=== PATIENT | female | born 1995 | race Two or more races ===

== ENCOUNTER 2016-09-24 02:29 | Emergency (ER) | payer MEDICAID ==
[~2016-09-24] VITALS: Ht 144.8 cm; Wt 68.0 kg
[2016-09-24 02:46] VITALS: BP 151/96
--- NOTE | 2016-09-24 02:58 | Emergency Room Report ---
History of Present Illness General Chief Complaint: Abdominal Pain Source: Patient Present Illness HPI Is a 20-year-old female with no past medical history. She presents with chief complaint of lower abdominal pain for the last day. Decreased appetite. Did not eat much today. No fever chills denies nausea no vomiting or diarrhea. No urinary complaint. Pain is 7/10. Mostly right lower quadrant. No radiation Allergies: Coded Allergies: No Known Allergies (Unverified , 09/24/16) Patient History Past Medical History: see triage record, old chart reviewed Past Surgical History: none Pertinent Family History: none Social History: Denies: smoking Last Menstrual Period: last week Now: No : 0 Para: 0 Immunizations: other Reviewed Nursing Documentation: PMH: Agreed, PSxH: Agreed Nursing Documentation-PMH Past Medical History: No Stated History Review of Systems Eye: Denies: blurred vision, eye pain ENT: Denies: ear pain, nose congestion, throat swelling Respiratory: Denies: cough, shortness of breath Cardiovascular: Denies: chest pain, palpitations Gastrointestinal: Reports: abdominal pain, Denies: diarrhea, nausea, vomiting Musculoskeletal: Denies: back pain, joint pain Skin: Denies: rash Neurological: Denies: headache, numbness Endocrine: Denies: increased thirst, increased urine Hematologic/Lymphatic: Denies: easy bruising All Other Systems: negative except mentioned in HPI Physical Exam Vital Signs Date Time Temp Pulse Resp B/P Pulse Ox O2 Delivery O2 Flow Rate FiO2 09/24/16 02:34 97.3 132 16 151/96 99 Room Air minus with tachycardia Sp02 EP Interpretation: reviewed, normal General Appearance: well appearing, no apparent distress, alert Head: normocephalic, atraumatic Eyes: bilateral eye EOMI, bilateral eye PERRL ENT: hearing grossly normal, normal pharynx Neck: full range of motion, supple, no meningismus Respiratory: chest non-tender, lungs clear, normal breath sounds Cardiovascular #1: regular rate, rhythm, no murmur Gastrointestinal: normal bowel sounds, no mass, no organomegaly, no bruit, non- distended, tenderness - Right lower quadrant Musculoskeletal: back normal, gait/station normal, normal range of motion Neurologic: alert, oriented x3 Psychiatric: mood/affect normal Skin: warm/dry Medical Decision Making Diagnostic Impression: Primary Impression: Abdominal pain Qualified Codes: R10.84 - Generalized abdominal pain ER Course Patient presents with vague abdominal pain. No evidence of acute abdomen. Pain resolved now. No evidence of appendicitis. No evidence of urinary tract infection. We'll discharge home. Lab Results Impression labs normal CT/MRI/US Diagnostic Results CT/MRI/US Diagnostic Results : Imaging Test Ordered: CT abdomen and pelvis Impression negative per radiologist Last Vital Signs Date Time Temp Pulse Resp B/P Pulse Ox O2 Delivery O2 Flow Rate FiO2 09/24/16 02:46 97.3 81 16 151/96 99 Room Air Status: improved Disposition: HOME, SELF-CARE Condition: Stable Scripts Ibuprofen* (MOTRIN*) 600 Mg Tablet 600 MG ORAL THREE TIMES A DAY, #30 TAB 0 Refills Prov: DELFINO VALLE M.D. 09/24/16 Referrals: [facility],REFERRING (PCP) Patient Instructions: Abdominal Pain, Adult Additional Instructions: followup with your DrJoan in 7 days. Return if worse. DELFINO VALLE M.D. Sep 24, 2016 02:58
[2016-09-24] MEDS ORDERED: Ketorolac 30mg Inj IV ONE (03:00)
[2016-09-24 03:25] LABS: APPEARANCE,URINE CLEAR; BASOPHILS % (AUTO) 1.3 % (0.0-2.0); EOSINOPHILS % (AUTO) 0.8 % (0.0-3.0); KETONES,URINE NEGATIVE (NEGATIVE); LEUKOCYTE ESTERASE ,URINE NEGATIVE (NEGATIVE); LYMPHOCYTES % (AUTO) 29.1 % (20.0-45.0); MEAN CORPUSCULAR HGB CONC 32.4 G/DL (32.0-36.0); MEAN CORPUSCULAR VOLUME 86 FL (80-99); MEAN PLATELET VOLUME 7.3 FL (6.5-10.1); MONOCYTES % (AUTO) 4.4 % (1.0-10.0); NEUTROPHILS % (AUTO) 64.5 % (45.0-75.0); NITRITE,URINE NEGATIVE (NEGATIVE); PH,URINE 7 (4.5-8.0); PLATELET COUNT 307 K/UL (150-450); PROTEIN,URINE NEGATIVE (NEGATIVE); RED BLOOD COUNT 4.74 M/UL (4.20-5.40); RED CELL DISTRIBUTION WIDTH 12.9 % (11.6-14.8); UROBILINOGEN,URINE NORMAL MG/DL (0.0-1.0); WHITE BLOOD COUNT 12.4 K/UL (4.8-10.8)
[2016-09-24 03:42] LABS: ALANINE AMINOTRANSFERASE 19 U/L (3-33); ALBUMIN/GLOBULIN RATIO 1.2 (1.0-2.7); ANION GAP 15 (5-15); ASPARTATE AMINO TRANSFERASE 34 U/L (5-40); CARBON DIOXIDE 25 mEQ/L (20-30); CHLORIDE 99 mEQ/L (98-107); CREATININE 0.9 mg/dL (0.5-0.9); GLOMERULAR FILTRATION RATE > 60 mL/min (>60); HEMOLYSIS 8; LIPASE 26 U/L (< 60); POTASSIUM 3.6 mEQ/L (3.4-4.9); SODIUM 139 mEQ/L (135-145); TOTAL PROTEIN 7.3 g/dL (6.6-8.7)
[2016-09-24] MEDS ORDERED: IBUPROFEN600 MG ORAL (04:29)
[2016-09-24 04:37] VITALS: BP_SYST 134; BP_SYST 151; BP_DIAS 90; BP_DIAS 96
--- NOTE | 2016-09-24 08:44 | Diagnostic Imaging Report ---
Indications: Abdominal pain Technique: Continuous helical CT imaging of the abdomen and pelvis was performed with automatic exposure control following administration of nonionic IV contrast only, on a Siemens sensation [address] scanner. Axial, coronal, sagittal images were reconstructed at 5 mm slice thickness. No oral contrast was administered per requesting physician's order, despite no contraindications listed in either submitted clinical data or tech note.. CTDI volume(s): 16 mGy Total DLP: 781 mGy-cm Findings: Comparison: None Lack of oral contrast limits evaluation of gastrointestinal tract, nondilated throughout. Small hiatal hernia. Several loops of fluid-filled, nondilated small bowel. Appendix contains small nodular calcifications in the basal aspect of lumen, otherwise unremarkable. No obvious mural thickening, adjacent stranding, extraluminal gas or fluid collections identified. Bilateral unopacified renal collecting systems and ureters mildly distended to the ureterovesical junctions. Urinary bladder distended. No obvious associated stone, mass,, mural thickening, or surrounding stranding. Liver, gallbladder, pancreas, spleen, adrenal glands, renal parenchyma, uterus, bilateral adnexal regions, vascular structures, retroperitoneum, mesentery, remainder visualized abdominopelvic anatomy unremarkable. Irregular pleural-based linear densities and dependent portions of both lung bases, right greater than left.. No focal skeletal abnormalities are identified. IMPRESSION: Distended urinary bladder, nonspecific. Outflow obstruction not excludable. Correlate clinically. Mild distention of bilateral renal collecting systems and ureters without other obvious obstructive etiology, may be secondary to above. Fluid-filled nondilated small bowel, nonspecific, may represent mild ileus/enteritis. Correlate clinically.. Appendicoliths with short appendix versus previous appendectomy with surgical clips. No evidence of acute appendicitis. Small hiatal hernia Pulmonary bibasal subsegmental atelectasis No other evidence of acute abdominopelvic disease, with limitation as described. Subtle but potentially significant abnormalities the gastrointestinal tract may be missed. Repeat CT scan with full oral and IV contrast preparation recommended for more complete evaluation, as clinically indicated This correlates with [facility] preliminary report.
== END 2016-09-24 04:37 | disposition home or self-care (01) ==
LOC: EMR 02:49
DX: R10.30 Lower abdominal pain, unspecified (principal); K44.9 Diaphragmatic hernia without obstruction or gangrene; N32.89 Other specified disorders of bladder
CPT/HCPCS: 36415; 74177; 80053; 81003; 81025; 83690; 85025; 85610; 85730; 96360; 96374; 99284; J1885; Q9967

== ENCOUNTER 2016-12-21 00:17 | Inpatient (IN) | payer MEDICAID ==
[2016-12-21] VITALS (21 sets, daily range): BP systolic 95–131; BP diastolic 40–76
[~2016-12-21] VITALS: Ht 160 cm; Wt 65.8 kg
[~2016-12-21 00:17] MED LIST: IBUPROFEN600 MG ORAL
[2016-12-21] MEDS ORDERED: Morphine Sulfate 4mg/ml Inj IVP ONE ×2 (00:45→04:45)
[2016-12-21 01:16] LABS: APPEARANCE,URINE CLEAR; KETONES,URINE 3+ (NEGATIVE); LEUKOCYTE ESTERASE ,URINE 1+ (NEGATIVE); NITRITE,URINE NEGATIVE (NEGATIVE); PH,URINE 6.5 (4.5-8.0); PROTEIN,URINE 3+ (NEGATIVE); UROBILINOGEN,URINE 1 MG/DL (0.0-1.0)
[2016-12-21 01:20] LABS: MEAN CORPUSCULAR HEMOGLOBIN 29.2 PG (27.0-31.0); MEAN CORPUSCULAR HGB CONC 33.8 G/DL (32.0-36.0); MEAN CORPUSCULAR VOLUME 86 FL (80-99); MEAN PLATELET VOLUME 8.2 FL (6.5-10.1); PLATELET COUNT 338 K/UL (150-450); RED BLOOD COUNT 5.13 M/UL (4.20-5.40); RED CELL DISTRIBUTION WIDTH 11.9 % (11.6-14.8)
[2016-12-21 01:24] LABS: WHITE BLOOD COUNT 23.4 K/UL (4.8-10.8)
[2016-12-21 01:32] LABS: ALANINE AMINOTRANSFERASE 14 U/L (3-33); ALBUMIN/GLOBULIN RATIO 1.5 (1.0-2.7); ANION GAP 16 (5-15); ASPARTATE AMINO TRANSFERASE 23 U/L (5-40); CALCIUM 9.7 mg/dL (8.6-10.2); CARBON DIOXIDE 26 mEQ/L (20-30); CHLORIDE 102 mEQ/L (98-107); CREATININE 0.8 mg/dL (0.5-0.9); GLOMERULAR FILTRATION RATE > 60 mL/min (>60); HEMOLYSIS 0; LIPASE 38 U/L (< 60); SODIUM 144 mEQ/L (135-145)
[2016-12-21 01:33] LABS: BACTERIA,URINE FEW /HPF; MUCUS,URINE MODERATE /LPF (NONE/OCC); SQUAMOUS EPITHELIAL CELL,UR FEW /LPF (NONE/OCC)
--- NOTE | 2016-12-21 01:50 | Emergency Room Report ---
History of Present Illness General Chief Complaint: Abdominal Pain Source: Patient Present Illness HPI 21-year-old female presents ED complaining of abdominal pain with nausea and vomiting. States symptoms started last night. Pain is sharp, localized to right lower quadrant, 8/10, nonradiating. Notes nausea and vomiting. Denies fevers or chills. Denies dysuria or hematuria. Relieving factors. Denies any other associated symptoms Allergies: Coded Allergies: No Known Allergies (Unverified , 09/24/16) Patient History Past Medical History: none Past Surgical History: none Pertinent Family History: none Social History: Denies: alcohol use, drug use, smoking Now: No - 12/11/16 Immunizations: UTD Reviewed Nursing Documentation: PMH: Agreed, PSxH: Agreed Nursing Documentation-PMH Past Medical History: No Stated History Hx Cardiac Problems: No Hx Hypertension: No Hx Pacemaker: No Hx Asthma: No Hx COPD: No Hx Diabetes: No Hx Cancer: No Hx Dialysis: No Hx Neurological Problems: No Hx Cerebrovascular Accident: No Hx Seizures: No Review of Systems All Other Systems: negative except mentioned in HPI Physical Exam Vital Signs Date Time Temp Pulse Resp B/P Pulse Ox O2 Delivery O2 Flow Rate FiO2 12/21/16 00:23 98.2 86 16 12/80 98 Room Air Sp02 EP Interpretation: reviewed, normal General Appearance: alert, GCS 15, non-toxic, mild distress Head: normocephalic Eyes: bilateral eye PERRL, bilateral eye normal inspection ENT: normal ENT inspection Neck: normal inspection Respiratory: chest non-tender, lungs clear, normal breath sounds, speaking full sentences Cardiovascular #1: regular rate, rhythm, no edema Gastrointestinal: normal bowel sounds, soft, non-distended, no rebound, guarding, tenderness - RLQ Rectal: deferred Genitourinary: no CVA tenderness Musculoskeletal: normal inspection Neurologic: alert, oriented x3, responsive, motor strength/tone normal, sensory intact, speech normal Psychiatric: normal inspection Skin: normal inspection Lymphatic: normal inspection Medical Decision Making Diagnostic Impression: Primary Impression: Acute appendicitis Qualified Codes: K35.80 - Unspecified acute appendicitis ER Course Hospital Course 21-year-old F presents to ED with RLQ pain with vomiting Differential diagnoses include: Appendicitis, cholecystitis, small bowel obstruction Clinical course Patient placed on stretcher. hospital monitor. After initial history and physical I ordered labs, IV fluids, UA, pain medication and CT scan Labs - leukocytosis noted, Hb/Hct stable. electrolytes ok. UA unremarkable CT abdomen and pelvis - appendicits Antibiotics given. Case discussed with Dr. Fragoso who will consult on the case Case discussed with Dr. Arellano and he agreed to accept the patient to his service for further care and support I feel this is a highly complex case requiring extensive working including EKG/ Rhythm strip, Xray/CT/US, Blood/urine lab work, repeat exams while in ED, and administration of strong opiates/narcotics for pain control, admission to hospital or close patient follow up. Diagnosis - acute appendicitis admitted in serious condition Labs Test 12/21/16 00:47 12/21/16 00:53 White Blood Count 23.4 K/UL (4.8-10.8) Red Blood Count 5.13 M/UL (4.20-5.40) Hemoglobin 15.0 G/DL (12.0-16.0) Hematocrit 44.3 % (37.0-47.0) Mean Corpuscular Volume 86 FL (80-99) Mean Corpuscular Hemoglobin 29.2 PG (27.0-31.0) Mean Corpuscular Hemoglobin Concent 33.8 G/DL (32.0-36.0) Red Cell Distribution Width 11.9 % (11.6-14.8) Platelet Count 338 K/UL (150-450) Mean Platelet Volume 8.2 FL (6.5-10.1) Neutrophils (%) (Auto) % (45.0-75.0) Lymphocytes (%) (Auto) % (20.0-45.0) Monocytes (%) (Auto) % (1.0-10.0) Eosinophils (%) (Auto) % (0.0-3.0) Basophils (%) (Auto) % (0.0-2.0) Sodium Level 144 mEQ/L (135-145) Potassium Level 4.0 mEQ/L (3.4-4.9) Chloride Level 102 mEQ/L (98-107) Carbon Dioxide Level 26 mEQ/L (20-30) Anion Gap 16 (5-15) Blood Urea Nitrogen 7 mg/dL (7-23) Creatinine 0.8 mg/dL (0.5-0.9) Estimat Glomerular Filtration Rate > 60 mL/min (>60) Glucose Level 119 mg/dL (74-106) Calcium Level 9.7 mg/dL (8.6-10.2) Total Bilirubin 0.3 mg/dL (0.0-1.2) Aspartate Amino Transf (AST/SGOT) 23 U/L (5-40) Alanine Aminotransferase (ALT/SGPT) 14 U/L (3-33) Alkaline Phosphatase 67 U/L (35-104) Total Protein 8.0 g/dL (6.6-8.7) Albumin 4.9 g/dL (3.5-5.2) Globulin 3.1 g/dL Albumin/Globulin Ratio 1.5 (1.0-2.7) Lipase 38 U/L (< 60) Urine Color Yellow Urine Appearance Clear Urine pH 6.5 (4.5-8.0) Urine Specific [place] 1.015 (1.005-1.035) Urine Protein 3+ (NEGATIVE) Urine Glucose (UA) Negative (NEGATIVE) Urine Ketones 3+ (NEGATIVE) Urine Occult Blood 3+ (NEGATIVE) Urine Nitrite Negative (NEGATIVE) Urine Bilirubin Negative (NEGATIVE) Urine Urobilinogen 1 MG/DL (0.0-1.0) Urine Leukocyte Esterase 1+ (NEGATIVE) Urine RBC 5-10 /HPF (0 - 2) Urine WBC 2-4 /HPF (0 - 2) Urine Squamous Epithelial Cells Few /LPF (NONE/OCC) Urine Bacteria Few /HPF (NONE) Urine Mucus Moderate /LPF (NONE/OCC) Urine HCG, Qualitative Negative CT/MRI/US Diagnostic Results CT/MRI/US Diagnostic Results : Imaging Test Ordered: CT A/P Impression acute appendicitis Last Vital Signs Date Time Temp Pulse Resp B/P Pulse Ox O2 Delivery O2 Flow Rate FiO2 12/21/16 00:23 98.2 86 16 12/80 98 Room Air Status: improved Disposition: ADMITTED INPATIENT Condition: Serious DAHLIA SHIN M.D. Dec 21, 2016 01:50
[2016-12-21] MEDS ORDERED: Piperacillin/Tazobactam 3.375 GM in NS 110 ML IVPB ONE (02:45)
[2016-12-21] MEDS ORDERED: Zosyn 3.375gm inj ONE (02:45)
--- NOTE | 2016-12-21 06:17 | General Progress Note ---
Progress Note Progress Note Consult dictated #[id number]. Impression : Acute appendicitis. Plan: will arrange for a laparoscopic appendectomy, possible open appendectomy by Dr Espino or Dr Zamora. Jesus Fragoso MD Dec 21, 2016 06:17
[2016-12-21 06:43] LABS: PROTHROMBIN TIME 10.2 SEC (9.30-11.50)
[2016-12-21] MEDS ORDERED: Mylanta II UD 30ml ORAL PRN (07:00)
[2016-12-21] MEDS ORDERED: Nitroglycerin Subl 0.4mg tab (Bottle Of 25) SL PRN (07:00)
[2016-12-21 07:19] LABS: BAND NEUTROPHILS % (MANUAL) 2 % (0-8); BASOPHILS % (MANUAL) 0 % (0-2); EOSINOPHILS % (MANUAL) 0 % (0-3); HYPOCHROMASIA 1+; LYMPHOCYTES % (MANUAL) 10 % (20-45); NEUTROPHILS % (MANUAL) 86 % (45-75); PLATELET ESTIMATE ADEQUATE; PLATELET MORPHOLOGY NORMAL; TOTAL CELLS COUNTED 100
[2016-12-21] MEDS: Morphine Sulfate 2mg/ml Inj IVP PRN ×3 (07:23→20:36)
[2016-12-21] MEDS: Pantoprazole Inj IVP SCH (08:16)
--- NOTE | 2016-12-21 08:51 | Pre-Procedure Note/Attestation ---
Pre-Procedure Note/Attestation Complete Prior to Procedure Planned Procedure: not applicable Procedure Narrative: laparoscopic appendectomy Indications for Procedure Pre-Operative Diagnosis: Acute appendicitis Attestation I attest that I discussed the nature of the procedure; its benefits; risks and complications; and alternatives (and the risks and benefits of such alternatives ), prior to the procedure, with the patient (or the patient's legal call center support representative). I attest that, if there was a reasonable possibility of needing a blood transfusion, the patient (or the patient's legal call center support representative) was given the [facility] standardized written summary, pursuant to the [place] Blood Safety Act ([place] Health and Safety Code # 1645, as amended). I attest that I re-evaluated the patient just prior to the surgery and that there has been no change in the patient's H&P, except as documented below: Robert Espino Dec 21, 2016 08:51
--- NOTE | 2016-12-21 08:58 | Diagnostic Imaging Report ---
Indication: Abdominal pain Technique: Continuous helical transaxial imaging of the abdomen and pelvis was obtained from the lung bases to the pubic symphysis during intravenous contrast administration. Coronal 2-D reformats were also obtained. Study obtained in a Siemens sensation [address] Total Dose length Product (DLP): [address] Dose Index Volume (CTDIvol): 16 mGy Comparison: None Findings: The appendix is dilated. There is thickening of the wall particularly at the proximal part of the appendix. Findings consistent with acute appendicitis. There is no evidence of rupture or fluid identified. The lung bases appear clear. There is a hiatal hernia. The gallbladder and solid organs are normal. There is no hydronephrosis. Uterus is noted. Impression: Acute appendicitis [facility] has communicated the preliminary results to the Emergency Department. Their findings are largely concordant with this report. The CT scanner at [facility] is accredited by the [employer] and the scans are performed using dose optimization techniques as appropriate to a performed exam including Automatic Exposure control.
[2016-12-21] MEDS ORDERED: Heparin 5000 units/ml inj SUBQ SCH (09:00)
--- NOTE | 2016-12-21 09:08 | Consultation ---
History of Present Illness General Date patient seen: Dec 21, 2016 Chief Complaint: Abdominal Pain Reason for Consultation: Acute appendicitis Present Illness HPI 21 year old otherwise healthy female presented to ED complaining of abdominal pain x 1 day. As per patient she was in her normal state of health until yesterday when she began to note worsening right lower quadrant abdominal pain. pain described as 8/10 sharp pain without radiation. associated with nausea and non blood emesis. as pain worsened she came to ED for evaluation. In ED found to have leukocytosis, exam with RLQ tenderness, and CT consistent with acute appendicitis. Surgery called to evaluate. Allergies: Coded Allergies: No Known Allergies (Unverified , 09/24/16) Medication History Scheduled Ibuprofen* (Motrin*), 600 MG ORAL THREE TIMES A DAY Patient History History Provided By: Patient Healthcare decision maker Resuscitation status Full Code Advanced Directive on File Past Medical/Surgical History Past Medical/Surgical History: (1) Acute appendicitis (2) Appendicitis Review of Systems Constitutional: Denies: chills, fever, malaise, no symptoms, other, see HPI, sweats, weakness Eye: Denies: acuity changes, blurred vision, discharge, double vision, eye pain , no symptoms, nose congestion, nose pain, other, see HPI, tearing ENT: Denies: ear discharge, ear pain, hearing loss, mouth pain, nasal discharge , no symptoms, nose congestion, nose pain, other, see HPI, throat pain, throat swelling Respiratory: Denies: SANDOVAL, cough, no symptoms, orthopnea, other, see HPI, shortness of breath, sputum, stridor, wheezing Cardiovascular: Denies: PND, chest pain, edema, no symptoms, other, palpitations, see HPI, syncope Gastrointestinal: Reports: abdominal pain, nausea, vomiting Genitourinary: Denies: discharge, dysuria, frequency, hematuria, incontinence, no symptoms, other, pain, retention, see HPI, urgency, vag bleed/dc Musculoskeletal: Denies: back pain, gout, joint pain, joint swelling, muscle pain, muscle stiffness, no symptoms, other, see HPI Skin: Denies: change in color, change in hair/nails, dryness, lesions, no symptoms, other, rash, see HPI Psychiatric: Denies: HI, SI, anxiety, depressed feelings, emotional problems, hallucinations, no symptoms, other, prior hx, see HPI Neurological: Denies: dizziness, focal weakness, headache, no symptoms, numbness, other, paresthesia, see HPI, seizure, syncope, tingling, tremors Endocrine: Denies: excessive sweating, flushing, increased thirst, increased urine, intolerance to temperature, no symptoms, other, see HPI, unexplained weight loss Hematologic/Lymphatic: Denies: anemia, blood clots, diathesis, easy bleeding, easy bruising, no symptoms, other, see HPI, swollen glands Physical Exam General Appearance: no apparent distress, alert Lines, tubes and drains: peripheral HEENT: atraumatic, PERRL Neck: normal inspection Respiratory/Chest: normal breath sounds, no respiratory distress, no accessory muscle use Cardiovascular/Chest: normal rate, regular rhythm Abdomen: soft, no organomegaly, no mass, guarding, rebound, tender Extremities: normal inspection Skin Exam: warm/dry Neurologic: alert, oriented x 3 Last 24 Hour Vital Signs Date Time Temp Pulse Resp B/P Pulse Ox O2 Delivery O2 Flow Rate FiO2 12/21/16 07:56 97.7 69 18 105/58 100 Room Air 12/21/16 07:53 97.7 12/21/16 05:40 98.1 71 19 107/57 98 Room Air 12/21/16 05:08 98.2 79 16 97/51 98 Room Air 12/21/16 05:07 98.2 79 16 97/51 98 Room Air 12/21/16 03:15 98.2 79 16 119/59 98 Room Air 12/21/16 00:23 98.2 86 16 12/80 98 Room Air Intake and Output 12/20/16 12/21/16 19:00 07:00 Intake Total 300 ml Balance 300 ml Intake Oral 0 ml IV Total 300 ml Laboratory Tests Test 12/21/16 00:47 12/21/16 00:53 12/21/16 06:25 White Blood Count 23.4 K/UL (4.8-10.8) *H Red Blood Count 5.13 M/UL (4.20-5.40) Hemoglobin 15.0 G/DL (12.0-16.0) Hematocrit 44.3 % (37.0-47.0) Mean Corpuscular Volume 86 FL (80-99) Mean Corpuscular Hemoglobin 29.2 PG (27.0-31.0) Mean Corpuscular Hemoglobin Concent 33.8 G/DL (32.0-36.0) Red Cell Distribution Width 11.9 % (11.6-14.8) Platelet Count 338 K/UL (150-450) Mean Platelet Volume 8.2 FL (6.5-10.1) Neutrophils (%) (Auto) % (45.0-75.0) Lymphocytes (%) (Auto) % (20.0-45.0) Monocytes (%) (Auto) % (1.0-10.0) Eosinophils (%) (Auto) % (0.0-3.0) Basophils (%) (Auto) % (0.0-2.0) Differential Total Cells Counted 100 Neutrophils % (Manual) 86 % (45-75) H Lymphocytes % (Manual) 10 % (20-45) L Monocytes % (Manual) 2 % (1-10) Eosinophils % (Manual) 0 % (0-3) Basophils % (Manual) 0 % (0-2) Band Neutrophils 2 % (0-8) Platelet Estimate Adequate Platelet Morphology Normal Hypochromasia 1+ Sodium Level 144 mEQ/L (135-145) Potassium Level 4.0 mEQ/L (3.4-4.9) Chloride Level 102 mEQ/L (98-107) Carbon Dioxide Level 26 mEQ/L (20-30) Anion Gap 16 (5-15) H Blood Urea Nitrogen 7 mg/dL (7-23) Creatinine 0.8 mg/dL (0.5-0.9) Estimat Glomerular Filtration Rate > 60 mL/min (>60) Glucose Level 119 mg/dL (74-106) H Calcium Level 9.7 mg/dL (8.6-10.2) Total Bilirubin 0.3 mg/dL (0.0-1.2) Aspartate Amino Transf (AST/SGOT) 23 U/L (5-40) Alanine Aminotransferase (ALT/SGPT) 14 U/L (3-33) Alkaline Phosphatase 67 U/L (35-104) Total Protein 8.0 g/dL (6.6-8.7) Albumin 4.9 g/dL (3.5-5.2) Globulin 3.1 g/dL Albumin/Globulin Ratio 1.5 (1.0-2.7) Lipase 38 U/L (< 60) Human Chorionic Gonadotropin, Quant 3 mIU/mL Urine Color Yellow Urine Appearance Clear Urine pH 6.5 (4.5-8.0) Urine Specific [place] 1.015 (1.005-1.035) Urine Protein 3+ (NEGATIVE) H Urine Glucose (UA) Negative (NEGATIVE) Urine Ketones 3+ (NEGATIVE) H Urine Occult Blood 3+ (NEGATIVE) H Urine Nitrite Negative (NEGATIVE) Urine Bilirubin Negative (NEGATIVE) Urine Urobilinogen 1 MG/DL (0.0-1.0) H Urine Leukocyte Esterase 1+ (NEGATIVE) H Urine RBC 5-10 /HPF (0 - 2) H Urine WBC 2-4 /HPF (0 - 2) Urine Squamous Epithelial Cells Few /LPF (NONE/OCC) Urine Bacteria Few /HPF (NONE) Urine Mucus Moderate /LPF (NONE/OCC) H Urine HCG, Qualitative Negative Urine Opiates Screen Negative (NEGATIVE) Urine Barbiturates Screen Negative (NEGATIVE) Phencyclidine (PCP) Screen Negative (NEGATIVE) Urine Amphetamines Screen Negative (NEGATIVE) Urine Benzodiazepines Screen Negative (NEGATIVE) Urine Cocaine Screen Negative (NEGATIVE) Urine Marijuana (THC) Screen Negative (NEGATIVE) Prothrombin Time 10.2 SEC (9.30-11.50) Prothromb Time International Ratio 1.0 (0.9-1.1) Activated Partial Thromboplast Time 28 SEC (23-33) Height (Feet): 5 Height (Inches): 3.00 Weight (Pounds): 145 Medications Current Medications Medications (Trade) Dose Ordered Sig/Miri Route PRN Reason Start Time Stop Time Status Last Admin Dose Admin Acetaminophen (Tylenol) 650 mg Q4H PRN ORAL T>100.5 12/21/16 07:00 01/20/17 06:59 Al Hydroxide/Mg Hydroxide (Mylanta II) 30 ml Q6H PRN ORAL dyspepsia 12/21/16 07:00 01/20/17 06:59 Dextrose STAT PRN IV Hypoglycemia 12/21/16 07:00 01/20/17 06:59 Diphenhydramine HCl (Benadryl) 25 mg Q6H PRN ORAL Itching/Pruritis 12/21/16 07:00 01/20/17 06:59 Heparin Sodium (Porcine) (Heparin 5000 units/ml) 5,000 units EVERY 12 HOURS SUBQ 12/21/16 09:00 01/20/17 08:59 Morphine Sulfate (Morphine Sulfate) 2 mg Q4H PRN IVP Severe Pain (Pain Scale 7-10) 12/21/16 07:00 12/28/16 06:59 12/21/16 07:23 Nitroglycerin (Ntg) 0.4 mg Q5M X 3 DOSES PRN SL Prn Chest Pain 12/21/16 07:00 01/20/17 06:59 Ondansetron HCl (Zofran) 4 mg Q6H PRN IVP Nausea & Vomiting 12/21/16 07:00 01/20/17 06:59 Pantoprazole (Protonix) 40 mg DAILY IVP 12/21/16 09:00 01/20/17 08:59 12/21/16 08:16 Piperacillin Sod/ Tazobactam Sod/ Sodium Chloride (Zosyn/Sodium Chloride) 110 ml @ 27.5 mls/hr EVERY 8 HOURS IVPB 12/21/16 14:00 12/28/16 13:59 Polyethylene Glycol (Miralax) 17 gm HSPRN PRN ORAL Constipation 12/21/16 21:00 01/20/17 20:59 Sodium Chloride (Sodium Chloride 1000ml bag) 1,000 ml @ 150 mls/hr Q6H40M IV 12/21/16 06:15 01/20/17 06:14 12/21/16 06:33 Temazepam (Restoril) 15 mg HSPRN PRN ORAL Insomnia 12/21/16 21:00 12/28/16 20:59 Assessment/Plan Problem List: (1) Acute appendicitis Assessment & Plan: 21F acute appendicitis. Afebrile, HD stable, leukocytosis, exam with RLQ tenderness, rebound and guarding, CT consistent with acute appendicitis. To OR for lap appy today NPO IV fluids IV Abx Consent in chart. ICD Codes: K35.80 - Unspecified acute appendicitis SNOMED: [id number] Qualifiers: Qualified Codes: K35.80 - Unspecified acute appendicitis Status: stable Robert Espino Dec 21, 2016 09:08
[2016-12-21] MEDS ORDERED: Bupivacaine w/Epi 0.5% 30ml Vial INJ ONE (09:39)
--- NOTE | 2016-12-21 09:45 | Consultation ---
DATE OF CONSULTATION: 12/21/2016 SURGICAL CONSULTATION REASON FOR ADMISSION: Abdominal pain and appendicitis. HISTORY OF PRESENT ILLNESS: This is a 21-year-old, 0, para 0, female. LMP is 12/11/2016. Developed problems with lower abdominal pain accompanied by nausea and vomiting at 10 p.m. on the evening prior to admission. The patient had a formed stool at that time. She denies any problems with diarrhea or rectal bleeding. PAST MEDICAL HISTORY: None. PREVIOUS SURGERIES: None. ALLERGIES: None known. MEDICATIONS: Oral contraceptives for regulation of periods. SOCIAL HISTORY: Tobacco, none. Alcohol, rare consumption. Occupation, retail sales. FAMILY HISTORY: Positive for hypertension in the patient's father. REVIEW OF SYSTEMS: Essentially negative. She denies any history of asthma or hepatitis. She is a 0, para 0 female, who was been on oral contraceptives for 6 months for regulation of menstrual periods. PHYSICAL EXAMINATION: GENERAL: Reveals a well-developed and well-nourished female. VITAL SIGNS: Temperature 98.2 degrees, blood pressure 97/51, pulse 80, and respirations 16. HEENT: Normocephalic. Pupils are equal and reactive to light. There was no scleral icterus. NECK: Supple without adenopathy. LUNGS: Clear. HEART: Showed a regular rhythm without murmurs or gallops. ABDOMEN: Flat. Bowel sounds were present, but decreased. There is tenderness with guarding in the right lower quadrant. There were no palpable masses. EXTREMITIES: Showed no clubbing, cyanosis, or edema. Peripheral pulses are intact. LABORATORY AND DIAGNOSTIC STUDIES: CBC showed a white blood count of 23,400, hemoglobin 15 grams percent, hematocrit 44.3%, and platelet count 338,000. Clinical chemistry showed a sodium of 144, potassium 4.0, chloride 102, bicarbonate 26, BUN 7, creatinine 0.8, and glucose 119. Lipase is normal at 38. Urinalysis showed 3+ protein, negative glucose, 3+ ketones, 3+ occult blood, and 1+ leukocyte esterase. Microscopic shows 5 to 10 red blood cells, 2 to 4 white cells, and few bacteria. Urine HCG was negative. A CT scan of the abdomen and pelvis showed no free air. There was with evidence of intestinal obstruction. There was thickening of the appendix with some surrounding stranding. IMPRESSION: Acute appendicitis. PLAN: The patient will need to be taken to the operating room this morning for a laparoscopic appendectomy versus open appendectomy. The nature, risks, and benefits of the surgery were explained. Jesus Fragoso M.D. DR: PIERCE JOB#: [id number] CC:
[2016-12-21] MEDS ORDERED: LR 1000ml 1,000 ML IVLG SCH (10:38)
--- NOTE | 2016-12-21 10:44 | Anethesia Preoperative Eval ---
Anesthesia Pre-op PMH/ROS General Date of Evaluation: Dec 21, 2016 Time of Evaluation: 11:16 Anesthesiologist: Lalitha ASA Score: ASA 1 Mallampati Score Class I : Soft palate, uvula, fauces, pillars visible Class II: Soft palate, uvula, fauces visible Class III: Soft palate, base of uvula visible Class IV: Only hard plate visible Mallampati Classification: Class I Surgeon: Kenzie Diagnosis: Acute Appendicitis Surgical Procedure: Laparoscopic Appendectomy Anesthesia History: none Family History: no anesthesia problems Allergies: Coded Allergies: No Known Allergies (Unverified , 09/24/16) Medications: see eMAR Past Medical History Neurologic/Psychiatric: Reports: depression/anxiety Anesthesia Pre-op Phys. Exam Physician Exam Last Vital Signs Date Time Temp Pulse Resp B/P Pulse Ox O2 Delivery O2 Flow Rate FiO2 12/21/16 07:56 97.7 69 18 105/58 100 Room Air Constitutional: NAD Neurologic: CN 2-12 intact Cardiovascular: RRR Respiratory: CTA Gastrointestinal: S/NT/ND Airway Exam Mallampati Score: Class I MO: full ROM: full Teeth: intact Anesthesia Pre-op A/P Labs Hematology Test 12/21/16 00:47 White Blood Count 23.4 K/UL (4.8-10.8) *H Red Blood Count 5.13 M/UL (4.20-5.40) Hemoglobin 15.0 G/DL (12.0-16.0) Hematocrit 44.3 % (37.0-47.0) Mean Corpuscular Volume 86 FL (80-99) Mean Corpuscular Hemoglobin 29.2 PG (27.0-31.0) Mean Corpuscular Hemoglobin Concent 33.8 G/DL (32.0-36.0) Red Cell Distribution Width 11.9 % (11.6-14.8) Platelet Count 338 K/UL (150-450) Mean Platelet Volume 8.2 FL (6.5-10.1) Neutrophils (%) (Auto) % (45.0-75.0) Lymphocytes (%) (Auto) % (20.0-45.0) Monocytes (%) (Auto) % (1.0-10.0) Eosinophils (%) (Auto) % (0.0-3.0) Basophils (%) (Auto) % (0.0-2.0) Differential Total Cells Counted 100 Neutrophils % (Manual) 86 % (45-75) H Lymphocytes % (Manual) 10 % (20-45) L Monocytes % (Manual) 2 % (1-10) Eosinophils % (Manual) 0 % (0-3) Basophils % (Manual) 0 % (0-2) Band Neutrophils 2 % (0-8) Platelet Estimate Adequate Platelet Morphology Normal Hypochromasia 1+ Coagulation Test 12/21/16 06:25 Prothrombin Time 10.2 SEC (9.30-11.50) Prothromb Time International Ratio 1.0 (0.9-1.1) Activated Partial Thromboplast Time 28 SEC (23-33) Chemistry Test 12/21/16 00:47 Sodium Level 144 mEQ/L (135-145) Potassium Level 4.0 mEQ/L (3.4-4.9) Chloride Level 102 mEQ/L (98-107) Carbon Dioxide Level 26 mEQ/L (20-30) Anion Gap 16 (5-15) H Blood Urea Nitrogen 7 mg/dL (7-23) Creatinine 0.8 mg/dL (0.5-0.9) Estimat Glomerular Filtration Rate > 60 mL/min (>60) Glucose Level 119 mg/dL (74-106) H Calcium Level 9.7 mg/dL (8.6-10.2) Total Bilirubin 0.3 mg/dL (0.0-1.2) Aspartate Amino Transf (AST/SGOT) 23 U/L (5-40) Alanine Aminotransferase (ALT/SGPT) 14 U/L (3-33) Alkaline Phosphatase 67 U/L (35-104) Total Protein 8.0 g/dL (6.6-8.7) Albumin 4.9 g/dL (3.5-5.2) Globulin 3.1 g/dL Albumin/Globulin Ratio 1.5 (1.0-2.7) Lipase 38 U/L (< 60) Human Chorionic Gonadotropin, Quant 3 mIU/mL Urine Test Test 12/21/16 00:53 Urine HCG, Qualitative Negative Risk Assessment & Plan Assessment: ASA 1 Plan: GA, BIS, Glidescope Status Change Before Surgery: No Pre-Antibiotics Dru.375 Grams Zosyn IV Given Within 1 Hr of Incision: Yes Time Given: 11:31 Raza Doty MD Dec 21, 2016 10:43
[2016-12-21] MEDS ORDERED: DiphenhydrAMINE 50mg/ml Inj IVP PRN (10:45)
[2016-12-21] MEDS ORDERED: Ketorolac 30mg Inj IV PRN (10:45)
[2016-12-21] MEDS ORDERED: Oxycodone/Acetaminophen 5-325 ORAL PRN (10:45)
[2016-12-21] MEDS ORDERED: LORazepam Inj 2mg/ml 1ml IV PRN (10:45)
[2016-12-21] MEDS ORDERED: Midazolam 2mg/2ml Inj IVP PRN (10:45)
[2016-12-21] MEDS ORDERED: Ketorolac 60mg Inj IV PRN (10:45)
[2016-12-21] MEDS ORDERED: fentaNYL 100 mcg/2 mL IV PRN (10:45)
[2016-12-21] MEDS ORDERED: Hydromorphone 0.5mg/0.5ml inj IVP PRN (10:45)
[2016-12-21] MEDS ORDERED: Meperidine 25mg/0.5ml Inj (FOR RIGORS ONLY) IV PRN (10:45)
[2016-12-21] MEDS ORDERED: Metoclopramide 10mg/2ml Inj IVP PRN (10:45)
[2016-12-21] MEDS ORDERED: Norco 7.5mg/325mg tab ORAL PRN (10:45)
[2016-12-21] MEDS ORDERED: Norco 5mg/325mg tab ORAL PRN (10:45)
[2016-12-21] MEDS ORDERED: Atropine Inj 1mg/10ml Syr IV PRN (10:45)
[2016-12-21] MEDS ORDERED: Zemuron 50mg/5ml Inj IV ONE (11:00)
[2016-12-21] MEDS ORDERED: Propofol 10mg/ml 20ml IV ONE (11:00)
[2016-12-21] MEDS ORDERED: LR 1000ml ONE (11:00)
[2016-12-21] MEDS ORDERED: fentaNYL 100 mcg/2 mL IV ONE (11:00)
[2016-12-21] MEDS ORDERED: NS Irrig 1000ml ONE (11:00)
[2016-12-21] MEDS ORDERED: Dexamethasone 4mg/ml vial ONE (11:00)
[2016-12-21] MEDS ORDERED: Neostigmine 1mg/ml 10ml Inj ONE (11:00)
[2016-12-21] MEDS ORDERED: Midazolam 2mg/2ml Inj ONE (11:00)
[2016-12-21] MEDS ORDERED: Sterile Water Irrig 1000ml IRRIG ONE (11:00)
[2016-12-21] MEDS ORDERED: Glycopyrrolate 0.2mg/ml 1ml Vial ONE (11:00)
[2016-12-21] MEDS ORDERED: Acetaminophen (Non formulary) 100 ML IV ONE (11:30)
--- NOTE | 2016-12-21 11:52 | Consultation ---
Consult Note Consult Note ID DIC# [id number] NEHEMIAH LINARES M.D. Dec 21, 2016 11:52
--- NOTE | 2016-12-21 11:52 | Immediate Post-Op Evaluation ---
Immediate Post-Op Evalulation Immediate Post-Op Evalulation Procedure: Laparoscopic Appendectomy Date of Evaluation: Dec 21, 2016 Time of Evaluation: 12:44 IV Fluids: 500 LR Blood Products: 0 Estimated Blood Loss: 10 Urinary Output: 0 Blood Pressure Systolic: 101 Blood Pressure Diastolic: 40 Pulse Rate: 76 Respiratory Rate: 16 O2 Sat by Pulse Oximetry: 96 Temperature (Fahrenheit): 97.7 Pain Score (1-10): 2 Nausea: No Vomiting: No Complications 0 Patient Status: awake, reacts, patent, extubated, none Hydration Status: adequate Dru.375 Grams Zosyn IV Given Within 1 Hr of Incision: Yes Time Given: 11:31 Raza Doty MD Dec 21, 2016 11:52
--- NOTE | 2016-12-21 12:27 | Brief Operative Note ---
Immediate Post Operative Note Operative Note Pre-op Diagnosis: Acute appendicitis Procedure: lap appy Findings: consistent w/pre-op dx studies Surgeon: april Anesthesiologist: Rm Anesthesia: general Specimen: yes Complications: none Condition: stable Fluids: see records Estimated Blood Loss: minimal Drains: none Implant(s) used?: No Robert Espino Dec 21, 2016 12:27
--- NOTE | 2016-12-21 13:34 | History and Physical ---
History of Present Illness General Date patient seen: Dec 21, 2016 Reason for Hospitalization: Abdominal Pain Present Illness HPI 21-year-old female presented to ED complaining of abdominal pain with nausea and vomiting. States symptoms started last night. Pain is sharp, localized to right lower quadrant, 8/10, nonradiating. Notes nausea and vomiting. Denies fevers or chills. Denies dysuria or hematuria. Relieving factors. Denies any other associated symptoms. Her CT of abdomen showed acute appendicitis. She is admitted for appendectomy. Allergies: Coded Allergies: No Known Allergies (Unverified , 09/24/16) Medication History Scheduled Ibuprofen* (Motrin*), 600 MG ORAL THREE TIMES A DAY Patient History Healthcare decision maker Resuscitation status Full Code Advanced Directive on File Review of Systems Constitutional: Reports: no symptoms Eye: Reports: no symptoms ENT: Reports: no symptoms Physical Exam General Appearance: WD/WN, no apparent distress Lines, tubes and drains: peripheral, central line Neck: non-tender, normal alignment Respiratory/Chest: chest wall non-tender, lungs clear, normal breath sounds Breasts: no masses Cardiovascular/Chest: normal peripheral pulses, normal rate Abdomen: normal bowel sounds, non tender Genitourinary/Rectal: normal genital exam, normal rectal exam Extremities: normal range of motion Last 24 Hour Vital Signs Date Time Temp Pulse Resp B/P Pulse Ox O2 Delivery O2 Flow Rate FiO2 12/21/16 13:20 66 19 121/69 98 Nasal Cannula 3.0 12/21/16 13:10 64 14 112/65 98 Nasal Cannula 3.0 12/21/16 13:00 67 22 115/72 97 Nasal Cannula 3.0 12/21/16 12:50 64 20 95/63 98 Nasal Cannula 3.0 12/21/16 12:45 78 21 120/61 98 Simple Mask 6.0 12/21/16 12:40 69 18 112/56 96 Simple Mask 6.0 12/21/16 12:33 97.7 76 22 101/40 94 Simple Mask 6.0 12/21/16 12:33 76 16 96 12/21/16 07:56 97.7 69 18 105/58 100 Room Air 12/21/16 07:53 97.7 12/21/16 05:40 98.1 71 19 107/57 98 Room Air 12/21/16 05:08 98.2 79 16 97/51 98 Room Air 12/21/16 05:07 98.2 79 16 97/51 98 Room Air 12/21/16 03:15 98.2 79 16 119/59 98 Room Air 12/21/16 00:23 98.2 86 16 12/80 98 Room Air Intake and Output 12/20/16 12/21/16 19:00 07:00 Intake Total 300 ml Balance 300 ml Intake Oral 0 ml IV Total 300 ml Laboratory Tests Test 12/21/16 00:47 12/21/16 00:53 12/21/16 06:25 White Blood Count 23.4 K/UL (4.8-10.8) *H Red Blood Count 5.13 M/UL (4.20-5.40) Hemoglobin 15.0 G/DL (12.0-16.0) Hematocrit 44.3 % (37.0-47.0) Mean Corpuscular Volume 86 FL (80-99) Mean Corpuscular Hemoglobin 29.2 PG (27.0-31.0) Mean Corpuscular Hemoglobin Concent 33.8 G/DL (32.0-36.0) Red Cell Distribution Width 11.9 % (11.6-14.8) Platelet Count 338 K/UL (150-450) Mean Platelet Volume 8.2 FL (6.5-10.1) Neutrophils (%) (Auto) % (45.0-75.0) Lymphocytes (%) (Auto) % (20.0-45.0) Monocytes (%) (Auto) % (1.0-10.0) Eosinophils (%) (Auto) % (0.0-3.0) Basophils (%) (Auto) % (0.0-2.0) Differential Total Cells Counted 100 Neutrophils % (Manual) 86 % (45-75) H Lymphocytes % (Manual) 10 % (20-45) L Monocytes % (Manual) 2 % (1-10) Eosinophils % (Manual) 0 % (0-3) Basophils % (Manual) 0 % (0-2) Band Neutrophils 2 % (0-8) Platelet Estimate Adequate Platelet Morphology Normal Hypochromasia 1+ Sodium Level 144 mEQ/L (135-145) Potassium Level 4.0 mEQ/L (3.4-4.9) Chloride Level 102 mEQ/L (98-107) Carbon Dioxide Level 26 mEQ/L (20-30) Anion Gap 16 (5-15) H Blood Urea Nitrogen 7 mg/dL (7-23) Creatinine 0.8 mg/dL (0.5-0.9) Estimat Glomerular Filtration Rate > 60 mL/min (>60) Glucose Level 119 mg/dL (74-106) H Calcium Level 9.7 mg/dL (8.6-10.2) Total Bilirubin 0.3 mg/dL (0.0-1.2) Aspartate Amino Transf (AST/SGOT) 23 U/L (5-40) Alanine Aminotransferase (ALT/SGPT) 14 U/L (3-33) Alkaline Phosphatase 67 U/L (35-104) Total Protein 8.0 g/dL (6.6-8.7) Albumin 4.9 g/dL (3.5-5.2) Globulin 3.1 g/dL Albumin/Globulin Ratio 1.5 (1.0-2.7) Lipase 38 U/L (< 60) Human Chorionic Gonadotropin, Quant 3 mIU/mL Urine Color Yellow Urine Appearance Clear Urine pH 6.5 (4.5-8.0) Urine Specific [place] 1.015 (1.005-1.035) Urine Protein 3+ (NEGATIVE) H Urine Glucose (UA) Negative (NEGATIVE) Urine Ketones 3+ (NEGATIVE) H Urine Occult Blood 3+ (NEGATIVE) H Urine Nitrite Negative (NEGATIVE) Urine Bilirubin Negative (NEGATIVE) Urine Urobilinogen 1 MG/DL (0.0-1.0) H Urine Leukocyte Esterase 1+ (NEGATIVE) H Urine RBC 5-10 /HPF (0 - 2) H Urine WBC 2-4 /HPF (0 - 2) Urine Squamous Epithelial Cells Few /LPF (NONE/OCC) Urine Bacteria Few /HPF (NONE) Urine Mucus Moderate /LPF (NONE/OCC) H Urine HCG, Qualitative Negative Urine Opiates Screen Negative (NEGATIVE) Urine Barbiturates Screen Negative (NEGATIVE) Phencyclidine (PCP) Screen Negative (NEGATIVE) Urine Amphetamines Screen Negative (NEGATIVE) Urine Benzodiazepines Screen Negative (NEGATIVE) Urine Cocaine Screen Negative (NEGATIVE) Urine Marijuana (THC) Screen Negative (NEGATIVE) Prothrombin Time 10.2 SEC (9.30-11.50) Prothromb Time International Ratio 1.0 (0.9-1.1) Activated Partial Thromboplast Time 28 SEC (23-33) Height (Feet): 5 Height (Inches): 3.00 Weight (Pounds): 145 Medications Current Medications Medications (Trade) Dose Ordered Sig/Miri Route PRN Reason Start Time Stop Time Status Last Admin Dose Admin Acetaminophen (Tylenol) 650 mg Q4H PRN ORAL T>100.5 12/21/16 07:00 01/20/17 06:59 Acetaminophen/ Hydrocodone Bitart ([place] 5/325) 1 tab Q1H PRN ORAL Mild Pain (Pain Scale 1-3) 12/21/16 10:45 12/21/16 17:00 Acetaminophen/ Hydrocodone Bitart ([place] 7.5/325) 1 ea Q1H PRN ORAL Moderate Pain (Pain Scale 4-6) 12/21/16 10:45 12/21/16 17:00 Al Hydroxide/Mg Hydroxide (Mylanta II) 30 ml Q6H PRN ORAL dyspepsia 12/21/16 07:00 01/20/17 06:59 Al Hydroxide/Mg Hydroxide (Mylanta) 15 ml Q1H PRN ORAL gi upset 12/21/16 10:45 12/21/16 17:00 Atropine Sulfate 0.5 mg 0.5 mg Q5M PRN IV HR <40 12/21/16 10:45 12/21/16 17:00 Dextrose STAT PRN IV Hypoglycemia 12/21/16 07:00 01/20/17 06:59 Diphenhydramine HCl (Benadryl) 25 mg Q15M PRN IVP Itching 12/21/16 10:45 12/21/16 17:00 Diphenhydramine HCl (Benadryl) 25 mg Q6H PRN ORAL Itching/Pruritis 12/21/16 07:00 01/20/17 06:59 Fentanyl Citrate (Sublimaze 100 mcg/2 mL) 25 mcg Q10M PRN IV Moderate Pain (Pain Scale 4-6) 12/21/16 10:45 12/21/16 17:00 Hydralazine HCl (Apresoline) 5 mg Q30M PRN IV SBP>160 / DBP>90 12/21/16 10:45 12/21/16 17:00 Hydromorphone HCl (Dilaudid) 0.5 mg Q15M PRN IVP Severe Pain (Pain Scale 7-10) 12/21/16 10:45 12/21/16 17:00 Ketorolac Tromethamine (Toradol 30mg) 15 mg Q1H PRN IV Moderate Breakthru Pain (5-7) 12/21/16 10:45 12/21/16 17:00 Ketorolac Tromethamine (Toradol) 60 mg Q1H PRN IV Severe Breakthru Pain (>7) 12/21/16 10:45 12/21/16 17:00 Lactated Ringer's (Lactated Ringer's 1000ml) 1,000 ml @ 10 mls/hr Q24H IVLG 12/21/16 10:38 12/21/16 17:00 Lorazepam (Ativan 2mg/ml 1ml) 1 mg Q15M PRN IV For Anxiety 12/21/16 10:45 12/21/16 17:00 Meperidine HCl (Demerol) 25 mg Q5M PRN IV Shivering. May repeat x 1 12/21/16 10:45 12/21/16 17:00 Midazolam HCl (Versed 2mg/2ml vial) 1 mg Q15M PRN IVP For Anxiety 12/21/16 10:45 12/21/16 17:00 12/21/16 12:56 Morphine Sulfate (Morphine Sulfate) 2 mg Q4H PRN IVP Severe Pain (Pain Scale 7-10) 12/21/16 07:00 12/28/16 06:59 12/21/16 07:23 Nitroglycerin (Ntg) 0.4 mg Q5M X 3 DOSES PRN SL Prn Chest Pain 12/21/16 07:00 01/20/17 06:59 Ondansetron HCl (Zofran) 4 mg Q6H PRN IVP Nausea & Vomiting 12/21/16 07:00 01/20/17 06:59 Oxycodone/ Acetaminophen (Percocet 5-325) 1 tab Q1H PRN ORAL Severe Pain (Pain Scale 7-10) 12/21/16 10:45 12/21/16 17:00 Pantoprazole (Protonix) 40 mg DAILY IVP 12/21/16 09:00 01/20/17 08:59 12/21/16 08:16 Piperacillin Sod/ Tazobactam Sod/ Sodium Chloride (Zosyn/Sodium Chloride) 110 ml @ 27.5 mls/hr EVERY 8 HOURS IVPB 12/21/16 14:00 12/28/16 13:59 Polyethylene Glycol (Miralax) 17 gm HSPRN PRN ORAL Constipation 12/21/16 21:00 01/20/17 20:59 Sodium Chloride (Sodium Chloride 1000ml bag) 1,000 ml @ 150 mls/hr Q6H40M IV 12/21/16 06:15 01/20/17 06:14 12/21/16 06:33 Temazepam (Restoril) 15 mg HSPRN PRN ORAL Insomnia 12/21/16 21:00 12/28/16 20:59 Assessment/Plan Problem List: (1) Appendicitis ICD Codes: K37 - Unspecified appendicitis SNOMED: 15960597 (2) Sepsis ICD Codes: A41.9 - Sepsis, unspecified organism SNOMED: 84707428 Assessment/Plan NPO surgical evaluation IV antibiotics f/u wbc IV fluids MARTINA PALMA Dec 21, 2016 13:34
[2016-12-21] MEDS ORDERED: Piperacillin/Tazobactam 3.375 GM in NS 110 ML IVPB SCH (14:00)
--- NOTE | 2016-12-21 16:26 | GI Initial Consult Note ---
History of Present Illness General Date patient seen: Dec 21, 2016 Time patient seen: 10:00 Reason for Hospitalization: Abdominal Pain Referring physician: MARTINA QUIÑONES Reason for Consultation: Acute appendicitis Present Illness HPI 21-year-old female presents ED complaining of abdominal pain with nausea and vomiting. States symptoms started last night. Pain is sharp, localized to right lower quadrant, 8/10, nonradiating. Notes nausea and vomiting. Denies fevers or chills. Denies dysuria or hematuria. Relieving factors. Denies any other associated symptoms GI Consult. HPI as noted above. GI consulted for abdominal pain. Pt seen on floor, awake A&Ox4 NAD c/o of RLQ pain now scheduled for lap appy today. The patient presents with leukocytosis only. CMP/LFT panels are unremarkable. No history of endoscopic procedures. Home Meds Active Scripts Ibuprofen* (MOTRIN*) 600 Mg Tablet, 600 MG ORAL THREE TIMES A DAY, #30 TAB 0 Refills Prov:DELFINO VALLE M.D. 09/24/16 Med list reviewed/reconciled: Yes Allergies: Coded Allergies: No Known Allergies (Unverified , 09/24/16) Patient History History Provided By: Patient, Medical Record PMH Narrative Past Medical History: none Past Surgical History: none Pertinent Family History: none Social History: Denies: alcohol use, drug use, smoking Now: No - 12/11/16 Immunizations: UTD Reviewed Nursing Documentation: PMH: Agreed, PSxH: Agreed Nursing Documentation-PMH Past Medical History: No Stated History Hx Cardiac Problems: No Hx Hypertension: No Hx Pacemaker: No Hx Asthma: No Hx COPD: No Hx Diabetes: No Hx Cancer: No Hx Dialysis: No Hx Neurological Problems: No Hx Cerebrovascular Accident: No Hx Seizures: No Social History: Denies: alcohol use, drug use, other, smoking Review of Systems All Other Systems: negative except mentioned in HPI Physical Exam Vital Signs Date Time Temp Pulse Resp B/P Pulse Ox O2 Delivery O2 Flow Rate FiO2 12/21/16 00:23 98.2 86 16 12/80 98 Room Air 12/21/16 12:33 6.0 Sp02 EP Interpretation: reviewed Labs Laboratory Tests Test 12/21/16 00:47 12/21/16 00:53 12/21/16 06:25 White Blood Count 23.4 K/UL (4.8-10.8) *H Red Blood Count 5.13 M/UL (4.20-5.40) Hemoglobin 15.0 G/DL (12.0-16.0) Hematocrit 44.3 % (37.0-47.0) Mean Corpuscular Volume 86 FL (80-99) Mean Corpuscular Hemoglobin 29.2 PG (27.0-31.0) Mean Corpuscular Hemoglobin Concent 33.8 G/DL (32.0-36.0) Red Cell Distribution Width 11.9 % (11.6-14.8) Platelet Count 338 K/UL (150-450) Mean Platelet Volume 8.2 FL (6.5-10.1) Neutrophils (%) (Auto) % (45.0-75.0) Lymphocytes (%) (Auto) % (20.0-45.0) Monocytes (%) (Auto) % (1.0-10.0) Eosinophils (%) (Auto) % (0.0-3.0) Basophils (%) (Auto) % (0.0-2.0) Differential Total Cells Counted 100 Neutrophils % (Manual) 86 % (45-75) H Lymphocytes % (Manual) 10 % (20-45) L Monocytes % (Manual) 2 % (1-10) Eosinophils % (Manual) 0 % (0-3) Basophils % (Manual) 0 % (0-2) Band Neutrophils 2 % (0-8) Platelet Estimate Adequate Platelet Morphology Normal Hypochromasia 1+ Sodium Level 144 mEQ/L (135-145) Potassium Level 4.0 mEQ/L (3.4-4.9) Chloride Level 102 mEQ/L (98-107) Carbon Dioxide Level 26 mEQ/L (20-30) Anion Gap 16 (5-15) H Blood Urea Nitrogen 7 mg/dL (7-23) Creatinine 0.8 mg/dL (0.5-0.9) Estimat Glomerular Filtration Rate > 60 mL/min (>60) Glucose Level 119 mg/dL (74-106) H Calcium Level 9.7 mg/dL (8.6-10.2) Total Bilirubin 0.3 mg/dL (0.0-1.2) Aspartate Amino Transf (AST/SGOT) 23 U/L (5-40) Alanine Aminotransferase (ALT/SGPT) 14 U/L (3-33) Alkaline Phosphatase 67 U/L (35-104) Total Protein 8.0 g/dL (6.6-8.7) Albumin 4.9 g/dL (3.5-5.2) Globulin 3.1 g/dL Albumin/Globulin Ratio 1.5 (1.0-2.7) Lipase 38 U/L (< 60) Human Chorionic Gonadotropin, Quant 3 mIU/mL Urine Color Yellow Urine Appearance Clear Urine pH 6.5 (4.5-8.0) Urine Specific [place] 1.015 (1.005-1.035) Urine Protein 3+ (NEGATIVE) H Urine Glucose (UA) Negative (NEGATIVE) Urine Ketones 3+ (NEGATIVE) H Urine Occult Blood 3+ (NEGATIVE) H Urine Nitrite Negative (NEGATIVE) Urine Bilirubin Negative (NEGATIVE) Urine Urobilinogen 1 MG/DL (0.0-1.0) H Urine Leukocyte Esterase 1+ (NEGATIVE) H Urine RBC 5-10 /HPF (0 - 2) H Urine WBC 2-4 /HPF (0 - 2) Urine Squamous Epithelial Cells Few /LPF (NONE/OCC) Urine Bacteria Few /HPF (NONE) Urine Mucus Moderate /LPF (NONE/OCC) H Urine HCG, Qualitative Negative Urine Opiates Screen Negative (NEGATIVE) Urine Barbiturates Screen Negative (NEGATIVE) Phencyclidine (PCP) Screen Negative (NEGATIVE) Urine Amphetamines Screen Negative (NEGATIVE) Urine Benzodiazepines Screen Negative (NEGATIVE) Urine Cocaine Screen Negative (NEGATIVE) Urine Marijuana (THC) Screen Negative (NEGATIVE) Prothrombin Time 10.2 SEC (9.30-11.50) Prothromb Time International Ratio 1.0 (0.9-1.1) Activated Partial Thromboplast Time 28 SEC (23-33) General Appearance: well appearing, no apparent distress, alert Head: normocephalic EENT: normal ENT inspection Neck: full range of motion Respiratory: normal breath sounds, no respiratory distress Cardiovascular: normal rate Gastrointestinal: normal inspection, soft, tenderness Rectal: deferred Musculoskeletal: normal inspection, back normal Neurologic: normal inspection, alert, oriented x3, responsive Psychiatric: normal inspection, judgement/insight normal, memory normal Skin: normal inspection, normal color, no rash Current Medications Current Medications Medications (Trade) Dose Ordered Sig/Miri Route PRN Reason Start Time Stop Time Status Last Admin Dose Admin Acetaminophen (Tylenol) 650 mg Q4H PRN ORAL T>100.5 12/21/16 07:00 01/20/17 06:59 Acetaminophen/ Hydrocodone Bitart ([place] 5/325) 1 tab Q1H PRN ORAL Mild Pain (Pain Scale 1-3) 12/21/16 10:45 12/21/16 17:00 Acetaminophen/ Hydrocodone Bitart ([place] 7.5/325) 1 ea Q1H PRN ORAL Moderate Pain (Pain Scale 4-6) 12/21/16 10:45 12/21/16 17:00 Al Hydroxide/Mg Hydroxide (Mylanta II) 30 ml Q6H PRN ORAL dyspepsia 12/21/16 07:00 01/20/17 06:59 Al Hydroxide/Mg Hydroxide (Mylanta) 15 ml Q1H PRN ORAL gi upset 12/21/16 10:45 12/21/16 17:00 Atropine Sulfate 0.5 mg 0.5 mg Q5M PRN IV HR <40 12/21/16 10:45 12/21/16 17:00 Dextrose (Dextrose 50%) STAT PRN IV Hypoglycemia 12/21/16 07:00 01/20/17 06:59 Diphenhydramine HCl (Benadryl) 25 mg Q15M PRN IVP Itching 12/21/16 10:45 12/21/16 17:00 Diphenhydramine HCl (Benadryl) 25 mg Q6H PRN ORAL Itching/Pruritis 12/21/16 07:00 01/20/17 06:59 Fentanyl Citrate (Sublimaze 100 mcg/2 mL) 25 mcg Q10M PRN IV Moderate Pain (Pain Scale 4-6) 12/21/16 10:45 12/21/16 17:00 Hydralazine HCl (Apresoline) 5 mg Q30M PRN IV SBP>160 / DBP>90 12/21/16 10:45 12/21/16 17:00 Hydromorphone HCl (Dilaudid) 0.5 mg Q15M PRN IVP Severe Pain (Pain Scale 7-10) 12/21/16 10:45 12/21/16 17:00 Ketorolac Tromethamine (Toradol 30mg) 15 mg Q1H PRN IV Moderate Breakthru Pain (5-7) 12/21/16 10:45 12/21/16 17:00 Ketorolac Tromethamine (Toradol) 60 mg Q1H PRN IV Severe Breakthru Pain (>7) 12/21/16 10:45 12/21/16 17:00 Lactated Ringer's (Lactated Ringer's 1000ml) 1,000 ml @ 10 mls/hr Q24H IVLG 12/21/16 10:38 12/21/16 17:00 Lorazepam (Ativan 2mg/ml 1ml) 1 mg Q15M PRN IV For Anxiety 12/21/16 10:45 12/21/16 17:00 Meperidine HCl 25 mg 25 mg Q5M PRN IV Shivering. May repeat x 1 12/21/16 10:45 12/21/16 17:00 12/21/16 13:52 Midazolam HCl (Versed 2mg/2ml vial) 1 mg Q15M PRN IVP For Anxiety 12/21/16 10:45 12/21/16 17:00 12/21/16 12:56 Morphine Sulfate (Morphine Sulfate) 2 mg Q4H PRN IVP Severe Pain (Pain Scale 7-10) 12/21/16 07:00 12/28/16 06:59 12/21/16 07:23 Nitroglycerin (Ntg) 0.4 mg Q5M X 3 DOSES PRN SL Prn Chest Pain 12/21/16 07:00 01/20/17 06:59 Ondansetron HCl (Zofran) 4 mg Q6H PRN IVP Nausea & Vomiting 12/21/16 07:00 01/20/17 06:59 Oxycodone/ Acetaminophen (Percocet 5-325) 1 tab Q1H PRN ORAL Severe Pain (Pain Scale 7-10) 12/21/16 10:45 12/21/16 17:00 Pantoprazole (Protonix) 40 mg DAILY IVP 12/21/16 09:00 01/20/17 08:59 12/21/16 08:16 Piperacillin Sod/ Tazobactam Sod/ Dextrose (Zosyn/D5W) 110 ml @ 27.5 mls/hr Q8H IVPB 12/21/16 20:00 12/28/16 19:59 Polyethylene Glycol (Miralax) 17 gm HSPRN PRN ORAL Constipation 12/21/16 21:00 01/20/17 20:59 Sodium Chloride (Sodium Chloride 1000ml bag) 1,000 ml @ 150 mls/hr Q6H40M IV 12/21/16 06:15 01/20/17 06:14 12/21/16 15:13 Temazepam (Restoril) 15 mg HSPRN PRN ORAL Insomnia 12/21/16 21:00 12/28/16 20:59 GI: Plan Problems: (1) Acute appendicitis (2) Appendicitis (3) Sepsis Plan lap appy today will follow surgical recs maintain NPO pain mgmt fu labs Discussed with Dr. Sanchez. Thank you for referring this patient, we will follow. Aria Valle N.P. Dec 21, 2016 16:26
--- NOTE | 2016-12-21 17:30 | Consultation ---
DATE OF CONSULTATION: INFECTIOUS DISEASE CONSULTATION CONSULTING PHYSICIAN: Bernardo Beaver M.D. REQUESTING PHYSICIAN: Jose Arellano M.D. REASON FOR CONSULTATION: Evaluation of the patient for appendicitis, antibiotic management. HISTORY OF PRESENT ILLNESS: The patient is a 21-year-old female with no significant prior medical history who does admit to this medical center for right lower quadrant abdominal pain. The patient's workup was suggestive of acute appendicitis and the patient is scheduled for surgery today. Infectious Disease consultation has been requested for evaluation of the patient for antibiotic management. PAST MEDICAL HISTORY: None. PAST SURGICAL HISTORY: None. MEDICATIONS: IV Zosyn. ALLERGIES: No known drug allergies. SOCIAL HISTORY: Negative for alcohol, drug abuse or smoking. FAMILY HISTORY: Noncontributory. REVIEW OF SYSTEMS: A 10-point review was done and except what is mentioned above has been negative. PHYSICAL EXAMINATION: VITAL SIGNS: Temperature 97.7 degrees, blood pressure 105/58, pulse 69, respiratory rate 18. HEENT: Mild pale conjunctivae. No icterus. NECK: No lymphadenopathy. CHEST: Clear. HEART: S1 and S2. ABDOMEN: The patient has right lower quadrant tenderness with rebound. EXTREMITIES: No cyanosis. NEUROLOGIC: Awake and alert. LABORATORY AND DIAGNOSTIC DATA: White blood cell 23, hemoglobin 15 and platelets 238,000. Urinalysis unremarkable. BUN and creatinine normal. Liver function tests normal. CT scan of the abdomen showed right lower quadrant tenderness. ASSESSMENT: The patient is a 21-year-old with 1. Right lower quadrant tenderness, acute appendicitis. 2. Leukocytosis. PLAN: 1. We will continue the patient on IV Zosyn. 2. We will follow surgical findings, if the patient do not have any evidence of perforation, we will start antibiotics soon. 3. Monitor CBC. 4. Monitor BMP. Thank you, Dr. Arellano, for allowing me to participate in the care of this patient. I will follow the patient during this hospitalization. Bernardo Mcclelland M.D. DR: AMARIS JOB#: [id number] CC:
[2016-12-21] MEDS ORDERED: D5 1/2NS 1,000 ML IV SCH (17:40)
--- NOTE | 2016-12-21 18:45 | Operative Note - Dictated ---
DATE OF OPERATION: 12/21/2016 PREOPERATIVE DIAGNOSIS: Acute appendicitis. POSTOPERATIVE DIAGNOSIS: Acute non-perforated appendicitis. OPERATION PERFORMED: Laparoscopic appendectomy. ATTENDING SURGEON: Robert Espino M.D. ANESTHESIOLOGIST: Raza Doty M.D. ANESTHESIA: General OPTICS ENGINEER. ESTIMATED BLOOD LOSS: Minimal. IV FLUIDS: Please see anesthesia record. WOUND CLASSIFICATION: Class III. SPECIMENS: The appendix sent to pathology for review. COMPLICATIONS: None. DRAINS: None. ANTIBIOTICS: The patient was on scheduled therapeutic Zosyn prior to entering the operating room. COUNTS: Sponge and needle count correct x2. INDICATIONS FOR PROCEDURE: This is a 21-year-old female, presented to the emergency room in the late yesterday evening complaining of worsening right lower quadrant abdominal pain for one day with associated nausea and vomiting. The patient was afebrile, leukocytosis, and abdominal exam consistent with acute appendicitis. CT scan was ordered in emergency department, which identified a thickened inflamed appendix consistent with acute appendicitis. Surgery was indicated. The risks, benefits, alternatives discussed with patient at bedside in detail. After doing so, consent was obtained. OPERATIVE NOTE: The patient was taken to the operating room and placed on the operating table in supine position with bilateral arms out. All bony prominences well padded with gel pads. No Newton was placed given the patient voided just prior to entering the operating room. SCDs were placed. The patient was on scheduled therapeutic antibiotics for acute inflammatory process prior to entering the operating room. A preoperative time-out was taken identifying the patient, procedure, operative site, and surgical staff. General anesthesia was induced. The patient was intubated. The abdomen was then prepped draped in standard surgical fashion after the left arm was tucked. We began by making an infraumbilical incision using a fresh 15-blade, which was carried down to the fascia. The fascia was elevated and incised and entry into the abdomen obtained using the open Rosario technique without complication. A 12 mm Rosario trocar was inserted and the abdomen insufflated to 1250 mmHg. The patient tolerated the insufflation well. Laparoscope was then inserted and the abdomen inspected. No injury from initial trocar placement was noted. In evaluating the abdominal contents, liver, and gallbladder looked otherwise normal as well of the stomach. In the left lower quadrant, the patient was noted to have a small left inguinal hernia. In the right lower quadrant, there was a dilated inflamed appendix without any signs of perforation. Secondary trocars were placed under direct visualization in the following locations, one left lower quadrant 5 mm trocar followed by a suprapubic 5 mm midline trocar. Secondary trocars were inserted without complication. A laparoscopic grasper was used and the appendix was grasped and pulled towards the pelvis. A window was made in at base of the appendix between the mesoappendix. A laparoscopic linear stapler was then inserted and the base of the appendix ligated and divided without complication. In a similar fashion, a laparoscopic linear stapler was then used to divide the mesoappendix without complications. Mild oozing from the remainder of the mesoappendix required 3 surgical clips to obtain proper hemostasis. Following this, the base of the appendix was evaluated and noted to be hemostatic and satisfactory. The base of the appendix and the cecum was evaluated noted to be satisfactory without complication. The mesoappendix was hemostatic without complication. At this time, we began our closure. The appendix was placed in endoscopic retrieval bag and removed through the umbilical trocar site. Secondary trocars removed under direct visualization. The abdomen was allowed to collapse. The 12 mm umbilical fascial incision was closed using a 0 [id number] Vicryl suture. The remaining skin incisions were closed using a 4-0 Monocryl subcuticular suture. The patient tolerated the procedure well, was awakened, and taken to the postanesthetic care unit in stable condition. Robert Espino M.D. DR: EVI JOB#: [id number] CC: ANDRES
[2016-12-21] MEDS: Piperacillin/Tazobactam 3.375 GM in D5W 110 ML IVPB SCH (20:33)
[2016-12-21] MEDS ORDERED: Miralax 17gm pkt ORAL PRN (21:00)
[2016-12-22] VITALS: BP 101/54
[2016-12-22 04:00] VITALS: BP 111/53
[2016-12-22] MEDS: Piperacillin/Tazobactam 3.375 GM in D5W 110 ML IVPB SCH (04:01)
[2016-12-22] MEDS: Morphine Sulfate 2mg/ml Inj IVP PRN (04:02)
--- NOTE | 2016-12-22 06:17 | 48 Hour Post Anesthesia Eval ---
Post Anesthesia Evaluation Procedure: Laparoscopic Appendectomy Date of Evaluation: Dec 22, 2016 Time of Evaluation: 07:00 Blood Pressure Systolic: 111 0: 53 Pulse Rate: 65 Respiratory Rate: 18 Temperature (Fahrenheit): 98.6 O2 Sat by Pulse Oximetry: 100 Airway: patent Nausea: No Vomiting: No Pain Intensity: 2 Hydration Status: adequate Cardiopulmonary Status: Stable Mental Status/LOC: patient returned to baseline Follow-up Care/Observations: As per surgery Post-Anesthesia Complications: No anesthetic complication Follow-up care needed: N/A TASHA CHEUNG M.D. Dec 22, 2016 06:17
[2016-12-22] MEDS ORDERED: Morphine Sulfate 2mg/ml Inj IVP PRN (08:02)
[2016-12-22] MEDS ORDERED: Morphine Sulfate 4mg/ml Inj IVP PRN (08:02)
[2016-12-22 08:21] VITALS: BP 102/56
[2016-12-22] MEDS: Pantoprazole Inj IVP SCH (08:56)
--- NOTE | 2016-12-22 10:16 | Infectious Diseases Prog Note ---
Assessment/Plan Assessment/Plan ASSESSMENT: The patient is a 21-year-old with Right lower quadrant tenderness, .Acute non-perforated appendicitis Leukocytosis no repeat CBC today PLAN: DC IV Zosyn d# 2 and monitor pt off of AB Rx Monitor CBC Monitor BMP Subjective Constitutional: Denies: anorexia, chills, drenching sweats, fatigue, fever, no symptoms, other Allergies: Coded Allergies: No Known Allergies (Unverified , 09/24/16) Objective Vital Signs Last 24 Hour Vital Signs Date Time Temp Pulse Resp B/P Pulse Ox O2 Delivery O2 Flow Rate FiO2 12/22/16 08:21 98.3 63 19 102/56 98 Room Air 12/22/16 06:17 65 18 100 12/22/16 04:00 98.6 65 18 111/53 100 Room Air 12/22/16 00:00 98.3 71 16 101/54 98 Room Air 12/21/16 20:00 97.9 94 18 126/72 98 Room Air 12/21/16 19:33 97.9 12/21/16 16:41 97.9 12/21/16 16:00 98.4 72 22 120/68 100 Nasal Cannula 3.0 12/21/16 15:00 97.9 75 20 124/70 98 Nasal Cannula 3.0 12/21/16 14:30 98.2 92 19 120/76 95 Nasal Cannula 3.0 12/21/16 14:28 97.6 12/21/16 14:11 97.6 72 21 123/65 97 Nasal Cannula 3.0 12/21/16 14:05 71 18 126/69 97 Nasal Cannula 3.0 12/21/16 14:00 93 20 131/76 97 Nasal Cannula 3.0 12/21/16 13:50 89 19 112/72 97 Nasal Cannula 3.0 12/21/16 13:40 64 20 121/75 98 Nasal Cannula 3.0 12/21/16 13:30 65 16 117/76 98 Nasal Cannula 3.0 12/21/16 13:20 66 19 121/69 98 Nasal Cannula 3.0 12/21/16 13:10 64 14 112/65 98 Nasal Cannula 3.0 12/21/16 13:00 67 22 115/72 97 Nasal Cannula 3.0 12/21/16 12:50 64 20 95/63 98 Nasal Cannula 3.0 12/21/16 12:45 78 21 120/61 98 Simple Mask 6.0 12/21/16 12:40 69 18 112/56 96 Simple Mask 6.0 12/21/16 12:33 97.7 76 22 101/40 94 Simple Mask 6.0 12/21/16 12:33 76 16 96 Height (Feet): 5 Height (Inches): 3.00 Weight (Pounds): 145 HEENT: atraumatic Respiratory/Chest: lungs clear Cardiovascular: regularly irregular Abdomen: no organomegaly Current Medications Medications (Trade) Dose Ordered Sig/Miri Route PRN Reason Start Time Stop Time Status Last Admin Dose Admin Acetaminophen (Tylenol) 650 mg Q4H PRN ORAL T>100.5 12/21/16 07:00 01/20/17 06:59 12/21/16 18:42 Al Hydroxide/Mg Hydroxide (Mylanta II) 30 ml Q6H PRN ORAL dyspepsia 12/21/16 07:00 01/20/17 06:59 Dextrose (Dextrose 50%) STAT PRN IV Hypoglycemia 12/21/16 07:00 01/20/17 06:59 Diphenhydramine HCl (Benadryl) 25 mg Q6H PRN ORAL Itching/Pruritis 12/21/16 07:00 01/20/17 06:59 Morphine Sulfate (Morphine Sulfate) 2 mg Q4H PRN IVP Moderate Pain (Pain Scale 4-6) 12/22/16 08:02 12/29/16 08:01 Morphine Sulfate (Morphine Sulfate) 4 mg Q4H PRN IVP Severe Pain (Pain Scale 7-10) 12/22/16 08:02 12/29/16 08:01 Nitroglycerin (Ntg) 0.4 mg Q5M X 3 DOSES PRN SL Prn Chest Pain 12/21/16 07:00 01/20/17 06:59 Ondansetron HCl (Zofran) 4 mg Q6H PRN IVP Nausea & Vomiting 12/21/16 07:00 01/20/17 06:59 12/21/16 16:11 Pantoprazole 40 mg 40 mg DAILY IVP 12/21/16 09:00 01/20/17 08:59 12/22/16 08:56 Piperacillin Sod/ Tazobactam Sod/ Dextrose (Zosyn/D5W) 110 ml @ 27.5 mls/hr Q8H IVPB 12/21/16 20:00 12/28/16 19:59 12/22/16 04:01 Polyethylene Glycol (Miralax) 17 gm HSPRN PRN ORAL Constipation 12/21/16 21:00 01/20/17 20:59 Sodium Chloride (Sodium Chloride 1000ml bag) 1,000 ml @ 150 mls/hr Q6H40M IV 12/21/16 06:15 01/20/17 06:14 12/22/16 08:57 Temazepam (Restoril) 15 mg HSPRN PRN ORAL Insomnia 12/21/16 21:00 12/28/16 20:59 NEHEMIAH LINARES M.D. Dec 22, 2016 10:16
[2016-12-22 10:23] LABS: BASOPHILS % (AUTO) 0.5 % (0.0-2.0); EOSINOPHILS % (AUTO) 0.1 % (0.0-3.0); LYMPHOCYTES % (AUTO) 24.9 % (20.0-45.0); MEAN CORPUSCULAR HEMOGLOBIN 29.5 PG (27.0-31.0); MEAN CORPUSCULAR HGB CONC 33.9 G/DL (32.0-36.0); MEAN CORPUSCULAR VOLUME 87 FL (80-99); MEAN PLATELET VOLUME 8.2 FL (6.5-10.1); MONOCYTES % (AUTO) 4.2 % (1.0-10.0); NEUTROPHILS % (AUTO) 70.3 % (45.0-75.0); PLATELET COUNT 288 K/UL (150-450); RED BLOOD COUNT 4.23 M/UL (4.20-5.40)
[2016-12-22 10:40] LABS: ALANINE AMINOTRANSFERASE 10 U/L (3-33); ALBUMIN/GLOBULIN RATIO 1.3 (1.0-2.7); AMYLASE 58 U/L (10-110); ANION GAP 17 (5-15); ASPARTATE AMINO TRANSFERASE 20 U/L (5-40); CALCIUM 9.1 mg/dL (8.6-10.2); CARBON DIOXIDE 22 mEQ/L (20-30); CHLORIDE 101 mEQ/L (98-107); CREATININE 0.7 mg/dL (0.5-0.9); GLOMERULAR FILTRATION RATE > 60 mL/min (>60); HEMOLYSIS 1; LIPASE 22 U/L (< 60); POTASSIUM 3.8 mEQ/L (3.4-4.9); SODIUM 140 mEQ/L (135-145); TOTAL PROTEIN 6.9 g/dL (6.6-8.7)
[2016-12-22 11:58] VITALS: BP 114/76
--- NOTE | 2016-12-22 12:47 | GI Progress Note ---
Assessment/Plan Problems: (1) Sepsis ICD Codes: A41.9 - Sepsis, unspecified organism SNOMED: 02805933 (2) Appendicitis ICD Codes: K37 - Unspecified appendicitis SNOMED: 16913814 (3) Acute appendicitis ICD Codes: K35.80 - Unspecified acute appendicitis SNOMED: 68438838 Qualifiers: Qualified Codes: K35.80 - Unspecified acute appendicitis Status: stable Status Narrative Discussed with Dr. Sanchez. Assessment/Plan ok for DC per GI standpoint tolerating diet zofran prn pain mgmt Subjective Subjective surgical pain at umbilical tolerating diet with a little nausea ambulating Objective Last 24 Hour Vital Signs Date Time Temp Pulse Resp B/P Pulse Ox O2 Delivery O2 Flow Rate FiO2 12/22/16 11:58 97.3 67 20 114/76 98 Room Air 12/22/16 08:21 98.3 63 19 102/56 98 Room Air 12/22/16 06:17 65 18 100 12/22/16 04:00 98.6 65 18 111/53 100 Room Air 12/22/16 00:00 98.3 71 16 101/54 98 Room Air 12/21/16 20:00 97.9 94 18 126/72 98 Room Air 12/21/16 19:33 97.9 12/21/16 16:41 97.9 12/21/16 16:00 98.4 72 22 120/68 100 Nasal Cannula 3.0 12/21/16 15:00 97.9 75 20 124/70 98 Nasal Cannula 3.0 12/21/16 14:30 98.2 92 19 120/76 95 Nasal Cannula 3.0 12/21/16 14:28 97.6 12/21/16 14:11 97.6 72 21 123/65 97 Nasal Cannula 3.0 12/21/16 14:05 71 18 126/69 97 Nasal Cannula 3.0 12/21/16 14:00 93 20 131/76 97 Nasal Cannula 3.0 12/21/16 13:50 89 19 112/72 97 Nasal Cannula 3.0 12/21/16 13:40 64 20 121/75 98 Nasal Cannula 3.0 12/21/16 13:30 65 16 117/76 98 Nasal Cannula 3.0 12/21/16 13:20 66 19 121/69 98 Nasal Cannula 3.0 12/21/16 13:10 64 14 112/65 98 Nasal Cannula 3.0 12/21/16 13:00 67 22 115/72 97 Nasal Cannula 3.0 12/21/16 12:50 64 20 95/63 98 Nasal Cannula 3.0 Intake and Output 12/21/16 12/22/16 19:00 07:00 Intake Total 2150 ml 1002.5 ml Output Total 20 ml Balance 2130 ml 1002.5 ml Intake Oral 250 ml 510 ml IV Total 1900 ml 492.5 ml Output Estimated Blood Loss 20 ml # Voids 4 3 Laboratory Tests Test 12/22/16 10:00 White Blood Count 15.0 K/UL (4.8-10.8) H Red Blood Count 4.23 M/UL (4.20-5.40) Hemoglobin 12.5 G/DL (12.0-16.0) Hematocrit 36.8 % (37.0-47.0) L Mean Corpuscular Volume 87 FL (80-99) Mean Corpuscular Hemoglobin 29.5 PG (27.0-31.0) Mean Corpuscular Hemoglobin Concent 33.9 G/DL (32.0-36.0) Red Cell Distribution Width 12.0 % (11.6-14.8) Platelet Count 288 K/UL (150-450) Mean Platelet Volume 8.2 FL (6.5-10.1) Neutrophils (%) (Auto) 70.3 % (45.0-75.0) Lymphocytes (%) (Auto) 24.9 % (20.0-45.0) Monocytes (%) (Auto) 4.2 % (1.0-10.0) Eosinophils (%) (Auto) 0.1 % (0.0-3.0) Basophils (%) (Auto) 0.5 % (0.0-2.0) Activated Partial Thromboplast Time 26 SEC (23-33) Sodium Level 140 mEQ/L (135-145) Potassium Level 3.8 mEQ/L (3.4-4.9) Chloride Level 101 mEQ/L (98-107) Carbon Dioxide Level 22 mEQ/L (20-30) Anion Gap 17 (5-15) H Blood Urea Nitrogen 7 mg/dL (7-23) Creatinine 0.7 mg/dL (0.5-0.9) Estimat Glomerular Filtration Rate > 60 mL/min (>60) Glucose Level 97 mg/dL (74-106) Calcium Level 9.1 mg/dL (8.6-10.2) Total Bilirubin 0.3 mg/dL (0.0-1.2) Aspartate Amino Transf (AST/SGOT) 20 U/L (5-40) Alanine Aminotransferase (ALT/SGPT) 10 U/L (3-33) Alkaline Phosphatase 56 U/L (35-104) Total Protein 6.9 g/dL (6.6-8.7) Albumin 3.9 g/dL (3.5-5.2) Globulin 3.0 g/dL Albumin/Globulin Ratio 1.3 (1.0-2.7) Amylase Level 58 U/L (10-110) Lipase 22 U/L (< 60) Height (Feet): 5 Height (Inches): 3.00 Weight (Pounds): 145 General Appearance: no apparent distress, alert Cardiovascular: normal rate Respiratory/Chest: normal breath sounds, no respiratory distress Abdominal Exam: normal bowel sounds, non tender, soft Extremities: normal range of motion Aria Hurley N.P. Dec 22, 2016 12:47
--- NOTE | 2016-12-22 15:38 | Pulmonology Progress Note ---
Assessment/Plan Problems: (1) Appendicitis Assessment/Plan wbc lower tolerating diet oked to dc by ID and surgery Subjective ROS Limited/Unobtainable: No Interval Events: tolerating diet Constitutional: Reports: no symptoms Allergies: Coded Allergies: No Known Allergies (Unverified , 09/24/16) Objective Last 24 Hour Vital Signs Date Time Temp Pulse Resp B/P Pulse Ox O2 Delivery O2 Flow Rate FiO2 12/22/16 11:58 97.3 67 20 114/76 98 Room Air 12/22/16 08:21 98.3 63 19 102/56 98 Room Air 12/22/16 06:17 65 18 100 12/22/16 04:00 98.6 65 18 111/53 100 Room Air 12/22/16 00:00 98.3 71 16 101/54 98 Room Air 12/21/16 20:00 97.9 94 18 126/72 98 Room Air 12/21/16 19:33 97.9 12/21/16 16:41 97.9 12/21/16 16:00 98.4 72 22 120/68 100 Nasal Cannula 3.0 Intake and Output 12/21/16 12/22/16 19:00 07:00 Intake Total 2150 ml 1002.5 ml Output Total 20 ml Balance 2130 ml 1002.5 ml Intake Oral 250 ml 510 ml IV Total 1900 ml 492.5 ml Output Estimated Blood Loss 20 ml # Voids 4 3 General Appearance: WD/WN HEENT: normocephalic, atraumatic Respiratory/Chest: chest wall non-tender, lungs clear Breasts: no masses Cardiovascular: normal peripheral pulses Abdomen: normal bowel sounds, soft, non tender, no organomegaly Genitourinary: normal external genitalia Extremities: no cyanosis Neurologic/Psychiatric: financial services director II-XII grossly normal, no motor/sensory deficits Laboratory Tests 12/22/16 10:00: White Blood Count 15.0H, Red Blood Count 4.23, Hemoglobin 12.5, Hematocrit 36.8L , Mean Corpuscular Volume 87, Mean Corpuscular Hemoglobin 29.5, Mean Corpuscular Hemoglobin Concent 33.9, Red Cell Distribution Width 12.0, Platelet Count 288, Mean Platelet Volume 8.2, Neutrophils (%) (Auto) 70.3, Lymphocytes (% ) (Auto) 24.9, Monocytes (%) (Auto) 4.2, Eosinophils (%) (Auto) 0.1, Basophils ( %) (Auto) 0.5, Activated Partial Thromboplast Time 26, Sodium Level 140, Potassium Level 3.8, Chloride Level 101, Carbon Dioxide Level 22, Anion Gap 17H , Blood Urea Nitrogen 7, Creatinine 0.7, Estimat Glomerular Filtration Rate > 60 , Glucose Level 97, Calcium Level 9.1, Total Bilirubin 0.3, Aspartate Amino Transf (AST/SGOT) 20, Alanine Aminotransferase (ALT/SGPT) 10, Alkaline Phosphatase 56, Total Protein 6.9, Albumin 3.9, Globulin 3.0, Albumin/Globulin Ratio 1.3, Amylase Level 58, Lipase 22 Current Medications Medications (Trade) Dose Ordered Sig/Miri Route PRN Reason Start Time Stop Time Status Last Admin Dose Admin Acetaminophen (Tylenol) 650 mg Q4H PRN ORAL T>100.5 12/21/16 07:00 01/20/17 06:59 12/21/16 18:42 Al Hydroxide/Mg Hydroxide (Mylanta II) 30 ml Q6H PRN ORAL dyspepsia 12/21/16 07:00 01/20/17 06:59 Dextrose (Dextrose 50%) STAT PRN IV Hypoglycemia 12/21/16 07:00 01/20/17 06:59 Diphenhydramine HCl (Benadryl) 25 mg Q6H PRN ORAL Itching/Pruritis 12/21/16 07:00 01/20/17 06:59 Morphine Sulfate (Morphine Sulfate) 2 mg Q4H PRN IVP Moderate Pain (Pain Scale 4-6) 12/22/16 08:02 12/29/16 08:01 Morphine Sulfate (Morphine Sulfate) 4 mg Q4H PRN IVP Severe Pain (Pain Scale 7-10) 12/22/16 08:02 12/29/16 08:01 Nitroglycerin (Ntg) 0.4 mg Q5M X 3 DOSES PRN SL Prn Chest Pain 12/21/16 07:00 01/20/17 06:59 Ondansetron HCl (Zofran) 4 mg Q6H PRN IVP Nausea & Vomiting 12/21/16 07:00 01/20/17 06:59 12/21/16 16:11 Pantoprazole (Protonix) 40 mg DAILY IVP 12/21/16 09:00 01/20/17 08:59 12/22/16 08:56 Polyethylene Glycol (Miralax) 17 gm HSPRN PRN ORAL Constipation 12/21/16 21:00 01/20/17 20:59 Temazepam (Restoril) 15 mg HSPRN PRN ORAL Insomnia 12/21/16 21:00 12/28/16 20:59 MARTINA PALMA Dec 22, 2016 15:38
[2016-12-22 15:45] VITALS: BP 125/68
[2016-12-22] MEDS ORDERED: NORCO 5-325 TA1 EAC1 ORAL (15:54)
[2016-12-22] MEDS ORDERED: SENOKOT-S8.6 TAB/50 ORAL (15:55)
--- NOTE | 2016-12-22 16:01 | General Progress Note ---
Progress Note Progress Note Surgery: patient seen and examined at bedside. no acute events. doing well since surgery. comfortable. pain improved. tolerating diet. +flatus. ambulatory. abdomen soft, incisional tenderness, non distended, incisions c/d/i afebrile, HD stable, leukocytosis improved okay to d/c from surgical standpoint Rx written follow up in 1 week for wound check and follow up okay to shower. diet as tolerated Robert Espino Dec 22, 2016 16:01
[2016-12-22] MEDS ORDERED: Tubing IV Secondary IV ONE (18:10)
--- NOTE | 2016-12-24 16:38 | Discharge Summary ---
Discharge Summary Hospital Course Date of Admission Dec 21, 2016 at 03:23 Date of Discharge Dec 22, 2016 at 18:11 Admitting Diagnosis appendicitis HPI Radha Lo is a 21 year old female who was admitted on Dec 21, 2016 at 03:23 for Appendicitis Hospital Course [id number] Discharge Discharge Disposition Patient was discharged to Home (01) Discharge Diagnoses: Marcela Castro NP Dec 24, 2016 16:38
--- NOTE | 2016-12-24 19:45 | Discharge Summary 2 SIG ---
DATE OF ADMISSION: 12/21/2016 DATE OF DISCHARGE: 12/22/2016 CONSULTANTS: 1. Bernardo Mcclelland M.D. 2. Robert Espino M.D. BRIEF HOSPITAL COURSE: The patient is a 21-year-old female, who presented to ED complaining of abdominal pain with nausea and vomiting. Pain was sharp, localized to right lower quadrant and nonradiating with associated nausea and vomiting. On evaluation at ED, laboratories showed leukocytosis WBC was elevated to 23.4. Urinalysis was unremarkable. CT of the abdomen and pelvis showed appendicitis. Surgical consult was then obtained. The patient was immediately placed on NPO and was started on IV fluids and IV antibiotics and given IV Zosyn. She underwent laparoscopic appendectomy on 12/21/2016. The patient had an acute non-perforated appendicitis and tolerated procedure well. Postoperatively, diet was advanced. She had a surgical pain at the umbilical hernia secondary to incision. She was tolerating diet and was cleared by Surgery for discharge. There was positive flatus. Abdomen was soft and nondistended. Incisions were clear, clean, dry and intact. She was afebrile. The patient was discharged home. Advised to follow up in a week for wound check. Okay to shower. Diet as tolerated. Prescriptions were given. FINAL DIAGNOSIS: Acute non-perforated appendicitis status post laparoscopic appendectomy. Jose Arellano M.D. I have been assigned to dictate discharge summary on this account and I was not involved in the patient's management. Marcela Castro N.P. DR: MAX JOB#: [id number] CC:
== END 2016-12-22 18:11 | disposition home or self-care (01) | DRG 710 ==
LOC: EMR 00:41 → 3E 03:23 → EDBEDREQ 03:36
PROC: 0DTJ4ZZ Resection of Appendix, Percutaneous Endoscopic Approach (ICD-10-PCS; principal; 2016-12-21 12:00)
DX: A41.9 Sepsis, unspecified organism (principal); K35.80 Unspecified acute appendicitis
CPT/HCPCS: 36415; 74177; 80053; 80300; 81003; 81025; 82150; 83690; 84702; 85007; 85025; 85610; 85730; 94003; 94150; J2180; J2250; J2405; J2710; J2765

== ENCOUNTER 2018-06-17 18:12 | Emergency (ER) | payer SELFPAY ==
[~2018-06-17] VITALS: Ht 144.8 cm; Wt 63.5 kg
[~2018-06-17 18:12] MED LIST changes: +NORCO 5-325 TA1 EAC1 ORAL; +SENOKOT-S8.6 TAB/50 ORAL
[2018-06-17] MEDS ORDERED: NKM (18:18)
[2018-06-17 18:40] VITALS: BP 122/77
--- NOTE | 2018-06-17 19:18 | Emergency Room Report ---
History of Present Illness General Chief Complaint: General Complaint Source: Patient Present Illness HPI 22-year-old female patient presents the ER complaining of left-sided facial numbness. Reports symptoms been present for 1 day. Denies history of heart attack or stroke. Denies taking control medication. Denies history of taking blood thinner medications. Denies tooth pain. Denies facial swelling. Denies pain. Denies rash. Denies fever, chest pain, shortness of breath. Denies sore throat or tooth pain. Denies ear pain. Denies vertigo or syncope. Reports history of anxiety, states "may be related to that". Reports has been feeling stressed and angry for the past few weeks. States does not take any anxiety medications, reports previously taking anxiety medication but has not taken them for over a year. Denies recent illness. Denies headache. Denies alcohol or drug use. Speaking full sentences, denies weakness or difficulty speaking. Denies ear pain. Denies tinnitus. Allergies: Coded Allergies: No Known Allergies (Unverified , 09/24/16) Patient History Past Medical History: see triage record Last Menstrual Period: 06/13/18 Reviewed Nursing Documentation: PMH: Agreed; PSxH: Agreed Nursing Documentation-PMH Past Medical History: No Stated History Hx Cardiac Problems: No Hx Hypertension: No Hx Pacemaker: No Hx Asthma: No Hx COPD: No Hx Diabetes: No Hx Cancer: No Hx Gastrointestinal Problems: No Hx Dialysis: No Hx Neurological Problems: No Hx Cerebrovascular Accident: No Hx Seizures: No Review of Systems All Other Systems: negative except mentioned in HPI Physical Exam Vital Signs Date Time Temp Pulse Resp B/P (MAP) Pulse Ox O2 Delivery O2 Flow Rate FiO2 06/17/18 18:17 98.2 87 18 122/77 95 Room Air Sp02 EP Interpretation: reviewed, normal General Appearance: well appearing, no apparent distress, alert, GCS 15, non- toxic Head: normocephalic, atraumatic Eyes: bilateral eye normal inspection, bilateral eye PERRL ENT: hearing grossly normal, normal pharynx, no angioedema, normal voice, TMs + canals normal, uvula midline, moist mucus membranes Neck: full range of motion Respiratory: lungs clear, normal breath sounds, no rhonchi, no respiratory distress, no accessory muscle use, no wheezing, speaking full sentences Cardiovascular #1: regular rate, rhythm, no edema Gastrointestinal: non tender, soft, no mass, non-distended, no guarding, no rebound Genitourinary: no CVA tenderness Musculoskeletal: back normal, digits/nails normal, gait/station normal, normal range of motion, non-tender Neurologic: alert, oriented x3, responsive, stock order lister III-XII nml as tested, motor strength/tone normal, sensory intact, cerebellar normal, normal gait, speech normal Psychiatric: mood/affect normal Skin: no rash Lymphatic: no adenopathy Medical Decision Making PA Attestation Dr. Rondon is my supervising Physician whom patient management has been discussed with. Diagnostic Impression: Primary Impression: Left facial numbness ER Course Pt. presents to the ED c/o left-sided facial numbness pain.. Ddx considered but are not limited to stress, anxiety, Wing's palsy, CVA, tooth infection, sinusitis, temporal arteritis. Vital signs: are WNL, pt. is afebrile ER COURSE: Physical exam benign, no focal neuro deficits, cranial nerves intact as tested. No facial droop, able to wrinkle forehead, low suspicion for Wing's palsy. No tooth pain, no recent illness, no sinus tenderness palpation, low suspicion for dental or sinus infection. Offered patient CT head scan, patient declined. Do not believe patient requires lab workup at this time. Follow with primary care provider for outpatient evaluation. Symptoms possibly related to anxiety symptoms. Advised patient to follow-up with mental health urgent care for further treatment and referral as needed. Follow-up with primary care provider to discuss further treatment and referral to mental health professional. Patient resting comfortably in no acute distress, nontoxic-appearing, smiling, laughing, able to answer questions, speak full sentences. Discussed patient care with Dr. Rondon, agrees with assessment treatment plan. DISCHARGE: At this time pt is stable for d/c to home. Patient is resting comfortably, in no acute distress, nontoxic appearing, talking without difficulty. Patient to take medications as instructed Will provide with patient care instructions and any necessary prescriptions. Care plan and follow-up instructions provided. Patient instructed to follow-up with primary care provider in 3 - 5 days. Patient questions asked and answered. Patient reports understanding and agreement to treatment plan. ER precautions given. Patient instructed to return to ER immediately for any new or worsening of symptoms including but not limited to increasing SOB, persistent fever, chest pain, intractable vomiting. - Please note that this Emergency Department Report was dictated using [employer] medic technology software, occasionally this can lead to erroneous entry secondary to interpretation by the dictation equipment. Last Vital Signs Date Time Temp Pulse Resp B/P (MAP) Pulse Ox O2 Delivery O2 Flow Rate FiO2 06/17/18 18:40 98.2 82 18 122/77 95 Room Air Disposition: HOME, SELF-CARE Condition: Stable Patient Instructions: Paresthesia, [id number] Additional Instructions: Followup with primary care provider in 1-2 days. Take medications as directed. Patient questions asked and answered. ER precautions given, patient instructed to return to ER immediately for any new or worsening of symptoms being but not limited to chest pain, shortness of breath, intractable vomiting, weakness, vision changes, syncope. Emile Burgess Jun 17, 2018 19:18
[2018-06-17 19:20] VITALS: BP 122/77
== END 2018-06-17 19:20 | disposition home or self-care (01) ==
LOC: EMR 18:52
DX: R20.0 Anesthesia of skin (principal)
CPT/HCPCS: 99282